=== PATIENT | male | born 1960 | race Caucasian/White ===

== ENCOUNTER → 2017-08-03 | Outpatient (REF) | LOC: M LAB 10:27 | PROVIDERS: ATTEND Nurse Practitioner Adult Health | DX: Z02.1 Encounter for pre-employment examination (principal) ==

== ENCOUNTER 2018-02-14 08:09 | Outpatient (REF) | payer OTHER ==
[2018-02-18 16:27] LABS: ALBUMIN 3.7 GM/DL (3.2-5.2); ALBUMIN/GLOBULIN RATIO 1.12 (1.00-1.93); ALKALINE PHOSPHATASE 68 U/L (45-117); ALT/SGPT 26 U/L (12-78); ANION GAP 7 MEQ/L (8-16); AST/SGOT 16 U/L (7-37); BILIRUBIN,TOTAL 0.3 MG/DL (0.2-1.0); BLOOD UREA NITROGEN 21 MG/DL (7-18); CALCIUM LEVEL 8.9 MG/DL (8.5-10.1); CARBON DIOXIDE LEVEL 28 MEQ/L (21-32); CHLORIDE LEVEL 108 MEQ/L (98-107); CREATININE FOR GFR 1.06 MG/DL (0.70-1.30); GLOMERULAR FILTRATION RATE > 60.0 (>56); GLUCOSE, FASTING 79 MG/DL (70-100); POTASSIUM SERUM 4.2 MEQ/L (3.5-5.1); SODIUM LEVEL 143 MEQ/L (136-145)
== END 2018-02-18 ==
LOC: M SFHCPLAZ 08:09
DX: I10 Essential (primary) hypertension (principal)

== ENCOUNTER → 2018-04-04 | Outpatient (REF) | payer SELFPAY, OTHER ==
[2018-04-04 11:06] LABS: BASO # 0.1 10^3/uL (0.0-0.2); EOS # 0.5 10^3/uL (0.0-0.50); EOS % 4.7 % (0.0-3.0); HEMOGLOBIN 16.8 g/dl (13.5-17.5); IMMATURE GRANULOCYTE % 0.2 % (0-3.0); LYMPH # 3.1 10^3/uL (1.5-4.5); LYMPH % 30.7 % (24.0-44.0); MEAN CORPUSCULAR HEMOGLOBIN 33.2 pg (27.0-33.0); MEAN CORPUSCULAR HGB CONC 34.3 g/dl (32.0-36.5); MEAN CORPUSCULAR VOLUME 96.8 fl (80.0-96.0); MONO # 0.8 10^3/uL (0.0-0.8); MONO % 8.2 % (0.0-5.0); NEUTROPHILS # 5.6 10^3/uL (1.8-7.7); NEUTROPHILS % 55.2 % (36.0-66.0); PLATELET COUNT, AUTOMATED 326 10^3/uL (150-450); RED BLOOD COUNT 5.06 10^6/uL (4.30-6.10); RED CELL DISTRIBUTION WIDTH 13.9 % (11.5-14.5); WHITE BLOOD COUNT 10.2 10^3/uL (4.0-10.0)
[2018-04-04 12:16] LABS: MALB URINE SIEMENS 6.1 MG/L; MAU/CREAT RATIO 5.9 MCG/MG (0.0-30.0)
[2018-04-04 13:01] LABS: ALBUMIN 3.9 GM/DL (3.2-5.2); ALBUMIN/GLOBULIN RATIO 1.18 (1.00-1.93); ALKALINE PHOSPHATASE 61 U/L (45-117); ALT/SGPT 26 U/L (12-78); ANION GAP 7 MEQ/L (8-16); AST/SGOT 14 U/L (7-37); BILIRUBIN,TOTAL 0.6 MG/DL (0.2-1.0); BLOOD UREA NITROGEN 12 MG/DL (7-18); CALCIUM LEVEL 8.6 MG/DL (8.5-10.1); CARBON DIOXIDE LEVEL 27 MEQ/L (21-32); CHLORIDE LEVEL 107 MEQ/L (98-107); CHOLESTEROL LEVEL 205 MG/DL (<200); CHOLESTEROL RISK RATIO 4.659 (<5); CREATININE FOR GFR 0.94 MG/DL (0.70-1.30); FREE T4 1.02 NG/DL (0.76-1.46); GLOMERULAR FILTRATION RATE > 60.0 (>56); GLUCOSE, FASTING 100 MG/DL (70-100); HDL CHOLESTEROL 44 MG/DL (>40); LDL CHOLESTEROL 143.6 MG/DL (<100); NON-HDL-C 161 MG/DL; POTASSIUM SERUM 4.5 MEQ/L (3.5-5.1); SODIUM LEVEL 141 MEQ/L (136-145); TOTAL PROTEIN 7.2 GM/DL (6.4-8.2); TRIGLYCERIDES LEVEL 87 MG/DL (<150)
== END ==
LOC: M SFHCPLAZ 08:00
DX: I10 Essential (primary) hypertension (principal); E78.5 Hyperlipidemia, unspecified

== ENCOUNTER 2019-07-30 10:05 | Emergency (ER) | payer BC, SELFPAY ==
[~2019-07-30] VITALS: Ht 170.2 cm; Wt 103.2 kg
[2019-07-30] MEDS ORDERED: LOSA50TA88 PO (10:09)
[2019-07-30] MEDS ORDERED: ISOVUE-370 76% 100ML VIAL (Q9967) As Ordered ONE (10:41)
[2019-07-30 10:55] LABS: BASO # 0.1 10^3/uL (0.0-0.2); EOS # 0.4 10^3/uL (0.0-0.5); EOS % 4.1 % (0.0-3.0); HEMATOCRIT 50.6 % (42.0-52.0); HEMOGLOBIN 16.9 g/dl (13.5-17.5); LYMPH # 3.3 10^3/uL (1.5-5.0); LYMPH % 30.8 % (24.0-44.0); MEAN CORPUSCULAR HEMOGLOBIN 33.2 pg (27.0-33.0); MEAN CORPUSCULAR HGB CONC 33.4 g/dl (32.0-36.5); MEAN CORPUSCULAR VOLUME 99.4 fl (80.0-96.0); MONO % 9.6 % (0.0-5.0); NEUTROPHILS # 5.7 10^3/uL (1.5-8.5); NEUTROPHILS % 54.2 % (36.0-66.0); PLATELET COUNT, AUTOMATED 293 10^3/uL (150-450); RED BLOOD COUNT 5.09 10^6/uL (4.30-6.10); WHITE BLOOD COUNT 10.6 10^3/uL (4.0-10.0)
[2019-07-30 11:06] LABS: INR 1.05; PROTHROMBIN TIME 13.4 SECONDS (11.8-14.0)
[2019-07-30 11:07] LABS: PARTIAL THROMBOPLASTIN TIME 29.9 SECONDS (25.0-38.4)
[2019-07-30 11:28] LABS: ALBUMIN 4.1 GM/DL (3.2-5.2); ALT/SGPT 24 U/L (12-78); BILIRUBIN,DIRECT 0.2 MG/DL (0.0-0.2); BILIRUBIN,TOTAL 0.8 MG/DL (0.2-1.0); BLOOD UREA NITROGEN 13 MG/DL (7-18); CALCIUM LEVEL 9.4 MG/DL (8.5-10.1); CARBON DIOXIDE LEVEL 28 MEQ/L (21-32); CHLORIDE LEVEL 104 MEQ/L (98-107); CREATININE FOR GFR 1.06 MG/DL (0.70-1.30); GLOMERULAR FILTRATION RATE > 60.0 (>56); GLUCOSE, FASTING 104 MG/DL (70-100); LIPASE 106 U/L (73-393); POTASSIUM SERUM 4.3 MEQ/L (3.5-5.1); SODIUM LEVEL 140 MEQ/L (136-145); TOTAL PROTEIN 7.5 GM/DL (6.4-8.2)
--- NOTE | 2019-07-30 11:28 | REP ---
Clinical: Chest pain. Evaluate thoracic aortic aneurysm. Technique: Axial contrast enhanced images from the thoracic inlet to the upper abdomen using angiographic technique for maximal enhancement of the thoracic aorta with coronal and sagittal re-formations and volume rendered 3-D angiogram. Findings: Thoracic aorta and major branch vessels of the aortic arch are normal and there is no evidence for aneurysm or dissection. No significant atherosclerotic changes are appreciated. Pulmonary vasculature is grossly unremarkable. The heart is normal in size without pericardial effusion. Subtle atherosclerotic changes to the coronary arteries noted. Lung serra are relatively clear and without acute process. Mild emphysematous changes are suggested along with 7 mm calcified granuloma in the right upper lobe. No acute consolidation. No effusion. No pneumothorax. Tracheobronchial tree is patent. No adenopathy. Surrounding musculoskeletal structures are intact. Impression: 1. Normal thoracic aorta and branch vessels without evidence for aortic aneurysm or dissection. 2. Atherosclerotic changes to the coronary arteries without cardiomegaly or pericardial effusion. 3. Mild emphysematous changes suggested. No acute pleuroparenchymal process. Electronically Signed by Zak Farr MD 07/30/2019 11:19 A
[2019-07-30] MEDS ORDERED: NS 1,000 ML IV ONE (11:45)
[2019-07-30 11:52] LABS: C REACTIVE PROTEIN QUANTITATIV 0.42 MG/DL (0.00-0.30); CK-MB VALUE MASS 1.8 NG/ML (<3.6); CPK CREATINE PHOSPHOKINASE 104 U/L (39-308); MB/CK RELATIVE INDEX 1.73 (< OR =4); NT-PRO BNP 58 PG/ML (<125); TROPONIN I < 0.02 NG/ML (< 0.10)
--- NOTE | 2019-07-30 12:05 | REP ---
CT ANGIOGRAM ABDOMEN AND PELVIS: TECHNIQUE: Axial contrast enhanced images from the lung bases to the pubic symphysis using 100 mL Isovue 370 intravenous contrast material with multiplanar reformations. 3-D MIP reconstruction images are performed. Visualized lung bases demonstrate no infiltrate. The liver, spleen, adrenals, pancreas, and kidneys are essentially unremarkable except for a tiny 3 mm calculus in the left renal collecting system inferiorly. There is no hydronephrosis bilaterally. There is mild focal dilatation of the infrarenal abdominal aorta with maximum AP diameter 3.2 cm. Mild scattered atherosclerotic calcifications are noted of the abdominal aorta. The distal end of the abdominal aorta is ectatic at 2.5 cm just above the aortic bifurcation. Right common iliac artery is ectatic at 1.6 to 1.9 cm in AP dimension with mild atherosclerotic plaquing. 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 There is no leakage of dissection of the aneurysm. No adenopathy is seen. There is no free air or free fluid. The appendix is normal. No bowel wall thickening is seen. There is sigmoid diverticulosis without any diverticulitis. Urinary bladder appears unremarkable. There appears to be a small right inguinal hernia containing fat. IMPRESSION: Slight aneurysmal dilatation of the distal abdominal aorta 3.2 cm maximally. 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 This was performed at an outside institution. No aneurysmal rupture or dissection. Sigmoid diverticulosis without acute diverticulitis. Right inguinal hernia contains fat. 3 mm intrarenal calculus left kidney. Electronically Signed by Nura Nicole MD 07/30/2019 12:25 P
[2019-07-30 12:20] LABS: ERYTHROCYTE SEDIMENTATION RATE 2 mm/hr (0-20)
[2019-07-30 14:41] VITALS: BP 145/88
--- NOTE | 2019-07-30 14:57 | REP ---
Clinical: Left scrotal pain. Technique: Real time he scale and color Doppler evaluation using linear high frequency transducer. Findings: The bilateral testicles are normal in contour, size, echogenicity and vascularity without torsion, infectious/inflammatory process, or testicular mass. Bilateral epididymal cysts measure up to 9 mm on the right and 7 mm on the left along with small bilateral hydroceles and multiple bilateral thrombosed varicoceles. Right testicle measures 4.0 x 1.9 x 2.9 cm. Left testicle measures 4.3 x 2.0 x 2.5 cm. Impression: 1. No obvious testicular abnormality. 2. Bilateral epididymal cysts, small hydroceles, and partially thrombosed varicoceles. Electronically Signed by Zak Farr MD 07/30/2019 02:48 P
--- NOTE | 2019-07-30 14:59 | REP ---
Clinical: Left groin pain. Technique: Real time he scale and color evaluation using linear high frequency transducer. Findings: Small bilateral fat containing inguinal hernias are identified (right greater left) which appear to be partially reducible. The right inguinal defect measures 24 mm diameter while the left inguinal defect measures 10 mm diameter. No associated bowel hernia. Impression: Small bilateral (right greater than left) reducible fat containing inguinal hernias. Electronically Signed by Zak Farr MD 07/30/2019 02:51 P
[2019-07-30 15:56] LABS: CHLAMYDIA DNA AMPLIFICATION NEGATIVE (NEGATIVE); GC DNA AMPLIFICATION NEGATIVE (NEGATIVE)
--- NOTE | 2019-07-31 11:34 | ED PDOC ---
Post-Departure Follow-Up [facility] faxed scrotal us for fu. cta abd/p faxed to dr brito for fu Dwayne Parada lg, MD Jul 31, 2019 11:34
== END 2019-07-30 15:45 | disposition home or self-care (01) ==
LOC: M ED 10:05
DX: R10.30 Lower abdominal pain, unspecified (principal); N20.0 Calculus of kidney; N50.3 Cyst of epididymis; J43.9 Emphysema, unspecified; K57.31 Diverticulosis of large intestine without perforation or abscess with bleeding; I25.10 Atherosclerotic heart disease of native coronary artery without angina pectoris; I86.1 Scrotal varices; N43.3 Hydrocele, unspecified; K40.20 Bilateral inguinal hernia, without obstruction or gangrene, not specified as recurrent; I71.4 Abdominal aortic aneurysm, without rupture; I72.3 Aneurysm of iliac artery; I10 Essential (primary) hypertension; F17.210 Nicotine dependence, cigarettes, uncomplicated; Z79.811 Long term (current) use of aromatase inhibitors
CPT/HCPCS: 71275; 74174; 76857; 76870; 80047; 80048; 80076; 81001; 82550; 82553; 83605; 83690; 83880; 84484; 85025; 85610; 85652; 85730; 86140; 86850; 86900; 86901; 87491; 87591; 93976; 96360; 96361; 99284; Q9967

== ENCOUNTER → 2019-09-09 | Outpatient (REF) | payer BC ==
[~2019-09-09] MED LIST: LOSA50TA88 PO
[2019-09-09 11:42] LABS: BASO # 0.1 10^3/uL (0.0-0.2); EOS # 0.4 10^3/uL (0.0-0.5); EOS % 3.7 % (0.0-3.0); HEMATOCRIT 51.2 % (42.0-52.0); HEMOGLOBIN 16.8 g/dl (13.5-17.5); LYMPH # 2.9 10^3/uL (1.5-5.0); LYMPH % 28.1 % (24.0-44.0); MEAN CORPUSCULAR HEMOGLOBIN 33.1 pg (27.0-33.0); MEAN CORPUSCULAR HGB CONC 32.8 g/dl (32.0-36.5); MONO # 1.1 10^3/uL (0.0-0.8); MONO % 10.9 % (0.0-5.0); NEUTROPHILS # 5.7 10^3/uL (1.5-8.5); NEUTROPHILS % 55.9 % (36.0-66.0); PLATELET COUNT, AUTOMATED 300 10^3/uL (150-450); RED BLOOD COUNT 5.07 10^6/uL (4.30-6.10); WHITE BLOOD COUNT 10.3 10^3/uL (4.0-10.0)
[2019-09-09 12:01] LABS: ALBUMIN 4.2 GM/DL (3.2-5.2); ALT/SGPT 21 U/L (12-78); BILIRUBIN,TOTAL 0.4 MG/DL (0.2-1.0); BLOOD UREA NITROGEN 14 MG/DL (7-18); CARBON DIOXIDE LEVEL 27 MEQ/L (21-32); CHLORIDE LEVEL 104 MEQ/L (98-107); CHOLESTEROL LEVEL 238 MG/DL (<200); CHOLESTEROL RISK RATIO 4.576 (<5); CREATININE FOR GFR 0.95 MG/DL (0.70-1.30); GLOMERULAR FILTRATION RATE > 60.0 (>56); GLUCOSE, FASTING 107 MG/DL (70-100); HDL CHOLESTEROL 52 MG/DL (>40); LDL CHOLESTEROL 168 MG/DL (<100); NON-HDL-C 186 MG/DL; POTASSIUM SERUM 4.3 MEQ/L (3.5-5.1); SODIUM LEVEL 138 MEQ/L (136-145); TOTAL PROTEIN 7.3 GM/DL (6.4-8.2); TRIGLYCERIDES LEVEL 90 MG/DL (<150)
[2019-09-09 12:07] LABS: VITAMIN B12 LEVEL 1086 PG/ML (247-911)
== END ==
LOC: M SFHCPLAZ 09:42
PROVIDERS: ATTEND Physician Assistant Medical
DX: I10 Essential (primary) hypertension (principal); E78.5 Hyperlipidemia, unspecified; N20.0 Calculus of kidney; F17.210 Nicotine dependence, cigarettes, uncomplicated

== ENCOUNTER → 2019-10-10 | Outpatient (CLI) | payer BC ==
[2019-10-10 14:36] LABS: ALBUMIN 3.9 GM/DL (3.2-5.2); ALT/SGPT 25 U/L (12-78); BILIRUBIN,TOTAL 0.5 MG/DL (0.2-1.0); BLOOD UREA NITROGEN 15 MG/DL (7-18); CALCIUM LEVEL 9.2 MG/DL (8.5-10.1); CARBON DIOXIDE LEVEL 32 MEQ/L (21-32); CHLORIDE LEVEL 108 MEQ/L (98-107); GLOMERULAR FILTRATION RATE > 60.0 (>56); GLUCOSE, FASTING 84 MG/DL (70-100); MAGNESIUM LEVEL 2.2 MG/DL (1.8-2.4); NT-PRO BNP 377 PG/ML (<125); POTASSIUM SERUM 4.2 MEQ/L (3.5-5.1); SODIUM LEVEL 144 MEQ/L (136-145); TOTAL PROTEIN 6.9 GM/DL (6.4-8.2)
== END ==
LOC: M PLALAB 10:59
PROVIDERS: ATTEND Physician Assistant Medical
DX: I10 Essential (primary) hypertension (principal)

== ENCOUNTER 2019-10-15 07:07 | Emergency (ER) | payer BC ==
[~2019-10-15] VITALS: Ht 172.7 cm; Wt 104.5 kg
[2019-10-15] MEDS ORDERED: ROSU10TA6 PO (07:21)
[2019-10-15] MEDS ORDERED: SPIR1CAP INH (07:21)
[2019-10-15] MEDS ORDERED: AMLO5TAB6 PO (07:21)
[2019-10-15] MEDS ORDERED: MUCI600T31 PO (07:21)
[2019-10-15] MEDS ORDERED: ALBU8.5H INH (07:21)
[2019-10-15] MEDS ORDERED: methylPREDNISolone INJ 125 MG/2 ML VIAL (J2930) IV ONE (07:30)
[2019-10-15 07:32] LABS: BASO # 0.1 10^3/uL (0.0-0.2); BASO % 0.6 % (0.0-1.0); EOS # 0.2 10^3/uL (0.0-0.5); EOS % 1.1 % (0.0-3.0); HEMATOCRIT 47.2 % (42.0-52.0); HEMOGLOBIN 16.1 g/dl (13.5-17.5); LYMPH % 18.5 % (24.0-44.0); MEAN CORPUSCULAR HGB CONC 34.1 g/dl (32.0-36.5); MEAN CORPUSCULAR VOLUME 99.6 fl (80.0-96.0); MONO # 1.5 10^3/uL (0.0-0.8); MONO % 9.5 % (0.0-5.0); NEUTROPHILS # 11.3 10^3/uL (1.5-8.5); NEUTROPHILS % 69.8 % (36.0-66.0); PLATELET COUNT, AUTOMATED 267 10^3/uL (150-450); RED BLOOD COUNT 4.74 10^6/uL (4.30-6.10); WHITE BLOOD COUNT 16.2 10^3/uL (4.0-10.0)
[2019-10-15 07:45] LABS: D-DIMER QUANT 1658.92 ng/ml (<500)
[2019-10-15] MEDS: IPRATROPIUM 0.5MG/ALBUTEROL 2.5MG INH SOL UD 3ML (DUONEB)(J7620) NEB SCH ×3 (07:48→09:19)
[2019-10-15 08:06] LABS: ALBUMIN 3.9 GM/DL (3.2-5.2); BILIRUBIN,DIRECT 0.3 MG/DL (0.0-0.2); BILIRUBIN,TOTAL 0.9 MG/DL (0.2-1.0)
[2019-10-15 08:08] LABS: BLOOD UREA NITROGEN 18 MG/DL (7-18); CALCIUM LEVEL 9.2 MG/DL (8.5-10.1); CARBON DIOXIDE LEVEL 29 MEQ/L (21-32); CHLORIDE LEVEL 108 MEQ/L (98-107); CK-MB VALUE MASS 2.1 NG/ML (<3.6); CPK CREATINE PHOSPHOKINASE 88 U/L (39-308); CREATININE FOR GFR 1.05 MG/DL (0.70-1.30); GLOMERULAR FILTRATION RATE > 60.0 (>56); GLUCOSE, FASTING 122 MG/DL (70-100); MB/CK RELATIVE INDEX 2.39 (< OR =4); POTASSIUM SERUM 4.1 MEQ/L (3.5-5.1); SODIUM LEVEL 137 MEQ/L (136-145); TROPONIN I 0.04 NG/ML (< 0.10)
[2019-10-15 08:21] LABS: INFLUENZA A AMPLIFICATION NEGATIVE (NEGATIVE); INFLUENZA B AMPLIFICATION NEGATIVE (NEGATIVE)
[2019-10-15] MEDS ORDERED: ISOVUE-370 76% 100ML VIAL (Q9967) As Ordered ONE (08:32)
--- NOTE | 2019-10-15 09:48 | REP ---
Portable chest x-ray: Single view. History: Chest pain. No comparison study. Findings: Monitoring electrodes are seen. The lungs are well inflated and free of infiltrate. Pleural angles appear sharp. Heart is not enlarged. Pulmonary vasculature is not increased. Impression: No acute disease. Electronically Signed by Maicol Lester MD 10/15/2019 07:45 A
--- NOTE | 2019-10-15 09:53 | REP ---
Clinical: Shortness of breath and elevated D-dimer levels. Technique: Axial contrast enhanced images from the thoracic inlet to the upper abdomen using 100 ml Isovue 370 intravenous contrast material with multiplanar re-formations. Findings: Satisfactory enhancement of the pulmonary vasculature is achieved and no filling defects are identified to suggest pulmonary embolus. Further evaluation of the mediastinum demonstrates normal thoracic aorta, heart and pericardium. The bilateral lung serra are well aerated and clear without consolidation pleural effusion or pneumothorax. Minimal posterior dependent changes. Tracheobronchial tree is patent. No nodule or mass lesion is identified. No adenopathy noted. Surrounding musculoskeletal structures intact Impression: No evidence for pulmonary embolus. No acute mediastinal or pleural parenchymal process. Electronically Signed by Zak Farr MD 10/15/2019 08:50 A
[2019-10-15] MEDS ORDERED: ALBUTEROL SULFATE 2.5 MG/0.5 ML INH NEB SOLN INH ONE (10:00)
[2019-10-15] MEDS ORDERED: AMIODARONE 150MG/3ML INJ (J0282) IVP STA (10:41)
[2019-10-15] MEDS ORDERED: NS 1,000 ML IV SCH (11:00)
[2019-10-15 11:29] LABS: CK-MB VALUE MASS 1.2 NG/ML (<3.6); MB/CK RELATIVE INDEX 0.36 (< OR =4); TROPONIN I 0.04 NG/ML (< 0.10)
[2019-10-15 11:37] LABS: INR 1.02; PARTIAL THROMBOPLASTIN TIME 31.3 SECONDS (25.0-38.4); PROTHROMBIN TIME 13.1 SECONDS (11.8-14.0)
[2019-10-15] MEDS ORDERED: AMIODARONE HCL 360 MG in IV 1 EA IV SCH (11:45)
[2019-10-15 12:45] VITALS: BP 115/79
--- NOTE | 2019-10-15 20:34 | ECGEPIP ---
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
--- NOTE | 2019-10-15 20:36 | ECGEPIP ---
[facility] - ED Test Date: 2019-10-15 Pat Name: WHIT OCHOA Department: Room: - Gender: Male [employer]ants [employer] Assistant: cristo : 1960 Requested By: Sudhir Leahy Order Number: [id number] Reading MD: Sudhir Ibrahim Measurements Intervals [place] Rate: 98 P: 66 CO: 159 QRS: 52 QRSD: 106 T: 124 QT: 375 QTc: 480 Interpretive Statements SINUS RHYTHM WITH FREQUENT VENTRICULAR PREMATURE COMPLEXES NONSPECIFIC ST & T-WAVE ABNORMALITY SIMILAR TO PRIOR ON SAME DATE Electronically Signed on 10-15-2019 20:36:26 EST by Sudhir Ibrahim
== END 2019-10-15 12:46 | disposition short-term general hospital (02) ==
LOC: M ED 07:07 → CANBEDREQ 11:31 → M ED 12:46
DX: I47.2 Ventricular tachycardia (principal); J44.1 Chronic obstructive pulmonary disease with (acute) exacerbation; I10 Essential (primary) hypertension; E78.5 Hyperlipidemia, unspecified; I72.3 Aneurysm of iliac artery; F17.210 Nicotine dependence, cigarettes, uncomplicated; Z79.51 Long term (current) use of inhaled steroids; Z79.899 Other long term (current) drug therapy
CPT/HCPCS: 71045; 71275; 80048; 80076; 82550; 82553; 83690; 83735; 84484; 85025; 85379; 85610; 85730; 87631; 93005; 93041; 94640; 94760; 96374; 96375; 99285; J0282; J2930; Q9967

== ENCOUNTER → 2020-08-18 | Outpatient (CLI) | payer BC ==
[~2020-08-18] MED LIST changes: +ALBU8.5H INH; +AMLO1TAB24 PO; +ISOVUE-370 76% 100ML VIAL As Ordered ONE; +MUCI600T31 PO; +ROSU10TA6 PO; +SPIR1CAP INH
--- NOTE | 2020-08-19 10:36 | REP ---
INDICATION: AAA COMPARISON: 07/30/2019 TECHNIQUE: Axial contrast-enhanced images from the lung bases to the pubic symphysis using CT angiographic technique including multiplanar reformations. 100 cc Isovue 370 intravenous contrast material administered without complication.. This CT examination was performed using the following dose reduction techniques: Automated exposure control, adjustment of mA and/or kv according to the patient's size, and use of iterative reconstruction technique. FINDINGS: The abdominal aorta again demonstrates mild early moderate atherosclerotic changes and a stable focal area of mild aneurysmal dilatation measuring 3.3 cm maximal diameter and roughly 2.3 cm in craniocaudal length followed by ectatic appearance to the more distal abdominal aorta measuring up to 2.7 cm maximal diameter with extension into the left common iliac artery demonstrating noncalcified mural thrombus and aneurysmal dilatation to approximately 3.2 cm maximal diameter and roughly 4.5 cm in length. Atherosclerotic changes to the right common iliac artery also noted which measures 1.9 cm maximal diameter. Remainder of the major aortic branch vessels including celiac axis, superior mesenteric artery, bilateral renal arteries, and inferior mesenteric artery appear patent and relatively normal. Mild hepatosteatosis suggested without focal hepatic lesion. Spleen, pancreas, gallbladder, bilateral adrenal glands and kidneys are normal. The enteric system is without obstruction or acute inflammatory process. Normal terminal ileum and appendix identified in the right lower quadrant. Scattered colonic and sigmoid diverticula noted without acute diverticulitis. Pelvis demonstrates normal bladder and age-appropriate prostate/seminal vesicles along with stable fat containing right inguinal hernia. No ascites. No free air. No intraperitoneal or retroperitoneal adenopathy. Musculoskeletal structures demonstrate stable degenerative changes. IMPRESSION: 1. Changes as described above involving the abdominal aorta and left iliac artery similar to prior examination. 2. Nonacute abdominal findings including diverticulosis and fat containing right inguinal hernia. <Electronically signed by Zak Farr > 08/19/20 [id number]
== END ==
LOC: M RAD 16:53
PROVIDERS: ATTEND Surgery Vascular Surgery
DX: I71.4 Abdominal aortic aneurysm, without rupture (principal)

== ENCOUNTER → 2021-01-03 | Outpatient (CLI) | payer BC ==
[~2021-01-03] MED LIST changes: -ISOVUE-370 76% 100ML VIAL As Ordered ONE
[2021-01-03 13:17] LABS: HEMOGLOBIN 15.9 g/dl (13.5-17.5); MEAN CORPUSCULAR HGB CONC 33.1 g/dl (32.0-36.5); MEAN CORPUSCULAR VOLUME 99.6 fl (80.0-96.0); PLATELET COUNT, AUTOMATED 332 10^3/uL (150-450); RED BLOOD COUNT 4.82 10^6/uL (4.30-6.10); WHITE BLOOD COUNT 11.9 10^3/uL (4.0-10.0)
[2021-01-03 13:55] LABS: ALBUMIN 3.8 GM/DL (3.2-5.2); ALT/SGPT 20 U/L (12-78); BILIRUBIN,TOTAL 0.6 MG/DL (0.2-1.0); BLOOD UREA NITROGEN 14 MG/DL (7-18); CARBON DIOXIDE LEVEL 29 MEQ/L (21-32); CHLORIDE LEVEL 107 MEQ/L (98-107); CHOLESTEROL LEVEL 155 MG/DL (<200); GLOMERULAR FILTRATION RATE > 60.0 (>56); GLUCOSE, FASTING 105 MG/DL (70-100); HDL CHOLESTEROL 62 MG/DL (>40); LDL CHOLESTEROL 70 MG/DL (<100); NON-HDL-C 93 MG/DL; POTASSIUM SERUM 4.2 MEQ/L (3.5-5.1); SODIUM LEVEL 140 MEQ/L (136-145); TOTAL PROTEIN 7.3 GM/DL (6.4-8.2); TRIGLYCERIDES LEVEL 116 MG/DL (<150)
[2021-01-03 13:57] LABS: TOTAL 25(OH) VITAMIN D 11.4 NG/ML (30.0-100.0)
== END ==
LOC: M LAB 12:19
PROVIDERS: ATTEND Family Medicine
DX: R06.00 Dyspnea, unspecified (principal)

== ENCOUNTER → 2021-08-01 | Outpatient (REF) | LOC: M EMP 12:18 | PROVIDERS: ATTEND Family Medicine | DX: Z11.52 Encounter for screening for COVID-19 (principal) ==

== ENCOUNTER → 2021-08-04 | Outpatient (REF) ==
[2021-08-04 10:50] LABS: RSV AMPLIFICATION NEGATIVE (NEGATIVE)
== END ==
LOC: M EMP 09:53
PROVIDERS: ATTEND Family Medicine
DX: Z20.822 Contact with and (suspected) exposure to COVID-19 (principal)

== ENCOUNTER → 2022-03-09 | Outpatient (CLI) | payer BC ==
[~2022-03-09] MED LIST changes: +LOSA50TA28 PO; -LOSA50TA88 PO
== END ==
LOC: M WUC 11:25
PROVIDERS: ATTEND Physician Assistant
DX: M79.674 Pain in right toe(s) (principal)

== ENCOUNTER → 2022-03-10 | Outpatient (CLI) | payer BC ==
[2022-03-10 10:57] LABS: BLOOD UREA NITROGEN 14 MG/DL (7-18); CALCIUM LEVEL 9.2 MG/DL (8.8-10.2); CARBON DIOXIDE LEVEL 25 MEQ/L (21-32); CHLORIDE LEVEL 105 MEQ/L (98-107); CREATININE FOR GFR 0.99 MG/DL (0.70-1.30); GLOMERULAR FILTRATION RATE > 60.0 (>49); GLUCOSE, FASTING 102 MG/DL (70-100); POTASSIUM SERUM 4.9 MEQ/L (3.5-5.1); SODIUM LEVEL 138 MEQ/L (136-145)
== END ==
LOC: M LAB 09:25
PROVIDERS: ATTEND Nurse Practitioner Family
DX: I25.10 Atherosclerotic heart disease of native coronary artery without angina pectoris (principal)

== ENCOUNTER → 2022-03-14 | Outpatient (CLI) | payer BC | LOC: M RAD 08:43 | PROVIDERS: ATTEND Nurse Practitioner Family | DX: F17.210 Nicotine dependence, cigarettes, uncomplicated (principal) ==

== ENCOUNTER → 2022-06-22 | Outpatient (CLI) | payer BC ==
[~2022-06-22] MED LIST changes: +ANOR1AER INH; +ATOR80TA59 PO; +CARV6.25 PO; +ECOT81TA5 PO; +FURO40TA2 PO; +ISOVUE-370 76% 100ML VIAL As Ordered ONE; +JARD1TAB PO; +POTA1TAB23 PO; +SOTA120T PO
== END ==
LOC: M RAD 08:28
PROVIDERS: ATTEND Nurse Practitioner Family
DX: R51.9 Headache, unspecified (principal)
CPT/HCPCS: 70496; Q9967

== ENCOUNTER → 2022-06-25 | Outpatient (CLI) | payer BC ==
[~2022-06-25] MED LIST changes: -ISOVUE-370 76% 100ML VIAL As Ordered ONE
== END ==
LOC: M LABSMTC 10:33
PROVIDERS: ATTEND Anesthesiology
DX: Z20.828 Contact with and (suspected) exposure to other viral communicable diseases (principal); Z11.59 Encounter for screening for other viral diseases

== ENCOUNTER 2022-06-28 10:53 | Day surgery (SDC) | payer BC ==
[~2022-06-28] VITALS: Ht 167.6 cm; Wt 107.0 kg
[~2022-06-28 10:53] MED LIST changes: +NS 1,000 ML IV ONE
[2022-06-28] MEDS ORDERED: LIDOCAINE 2% 100MG/5ML SDV (FOR ANES.) As Ordered ONE (12:18)
[2022-06-28] MEDS ORDERED: propofoL 200 MG/20 ML VIAL As Ordered ONE (12:18)
[2022-06-28 14:05] VITALS: BP 178/86
== END 2022-06-28 14:19 | disposition home or self-care (01) ==
LOC: M OPP 10:53
PROVIDERS: ATTEND Surgery
DX: Z12.11 Encounter for screening for malignant neoplasm of colon (principal); Z86.010 Personal history of colon polyps; D12.6 Benign neoplasm of colon, unspecified; Z79.02 Long term (current) use of antithrombotics/antiplatelets; Z79.82 Long term (current) use of aspirin; Z79.84 Long term (current) use of oral hypoglycemic drugs; Z79.899 Other long term (current) drug therapy; F17.200 Nicotine dependence, unspecified, uncomplicated; F32.9 Major depressive disorder, single episode, unspecified; F41.9 Anxiety disorder, unspecified; I71.30 Abdominal aortic aneurysm, ruptured, unspecified; I72.3 Aneurysm of iliac artery; I10 Essential (primary) hypertension; E78.00 Pure hypercholesterolemia, unspecified; J44.9 Chronic obstructive pulmonary disease, unspecified; Z95.0 Presence of cardiac pacemaker; Z95.5 Presence of coronary angioplasty implant and graft

== ENCOUNTER → 2023-01-10 | Outpatient (CLI) | payer BC ==
[~2023-01-10] MED LIST changes: -NS 1,000 ML IV ONE
[2023-01-10 08:36] LABS: BASO # 0.1 10^3/uL (0.0-0.2); EOS # 0.3 10^3/uL (0.0-0.5); EOS % 3.5 % (0.0-3.0); HEMATOCRIT 55.6 % (42.0-52.0); LYMPH # 2.7 10^3/uL (1.5-5.0); MEAN CORPUSCULAR HEMOGLOBIN 33.4 pg (27.0-33.0); MEAN CORPUSCULAR HGB CONC 33.8 g/dl (32.0-36.5); MEAN CORPUSCULAR VOLUME 98.8 fl (80.0-96.0); MONO # 0.9 10^3/uL (0.0-0.8); MONO % 9.6 % (2.0-8.0); NEUTROPHILS # 5.6 10^3/uL (1.5-8.5); NEUTROPHILS % 57.4 % (36.0-66.0); PLATELET COUNT, AUTOMATED 232 10^3/uL (150-450); RED BLOOD COUNT 5.63 10^6/uL (4.30-6.10); WHITE BLOOD COUNT 9.7 10^3/uL (4.0-10.0)
[2023-01-10 08:48] LABS: ALBUMIN 3.9 G/DL (3.2-5.2); ALKALINE PHOSPHATASE 71 U/L (46-116); ALT/SGPT 24 U/L (7.0-40); AST/SGOT 21 U/L (<34); BILIRUBIN,TOTAL 0.9 MG/DL (0.3-1.2); BLOOD UREA NITROGEN 15 MG/DL (9-23); CALCIUM LEVEL 9.1 MG/DL (8.3-10.6); CARBON DIOXIDE LEVEL 27 MMOL/L (20-31); CHLORIDE LEVEL 108 MMOL/L (98-107); CHOLESTEROL LEVEL 144 MG/DL (<200); CHOLESTEROL RISK RATIO 3.02 (<5); CREATININE FOR GFR 0.86 MG/DL (0.70-1.30); GLOMERULAR FILTRATION RATE > 60.0 (>49); GLUCOSE, FASTING 116 MG/DL (74-106); HDL CHOLESTEROL 47.6 MG/DL (>40); LDL CHOLESTEROL 80.6 MG/DL (<100); NON-HDL-C 96.4 MG/DL; POTASSIUM SERUM 4.6 MMOL/L (3.5-5.1); SODIUM LEVEL 140 MMOL/L (136-145); TOTAL PROTEIN 6.6 G/DL (5.7-8.2); TRIGLYCERIDES LEVEL 79 MG/DL (<150)
[2023-01-10 08:50] LABS: HEMOGLOBIN 18.8 g/dl (13.5-17.5)
[2023-01-10 09:27] LABS: HEMOGLOBIN A1c 5.7 % (4.0-6.0)
== END ==
LOC: M RAD 07:17
PROVIDERS: ATTEND Registered Nurse
DX: Z87.891 Personal history of nicotine dependence (principal)

== ENCOUNTER → 2023-01-23 | Outpatient (REF) | LOC: M EMP 08:16 | PROVIDERS: ATTEND Family Medicine | DX: Z20.822 Contact with and (suspected) exposure to COVID-19 (principal) ==

== ENCOUNTER → 2023-01-24 | Outpatient (REF) | LOC: M EMP 12:26 | PROVIDERS: ATTEND Family Medicine | DX: Z20.822 Contact with and (suspected) exposure to COVID-19 (principal) ==

== ENCOUNTER → 2023-02-12 | Outpatient (CLI) | payer BC ==
[~2023-02-12] MED LIST changes: +ISOVUE-370 76% 100ML VIAL As Ordered ONE
== END ==
LOC: M RAD 13:27
PROVIDERS: ATTEND Registered Nurse
DX: I71.40 Abdominal aortic aneurysm, without rupture, unspecified (principal); I70.0 Atherosclerosis of aorta; I72.3 Aneurysm of iliac artery
CPT/HCPCS: 74177; Q9967

== ENCOUNTER → 2023-03-13 | Outpatient (CLI) | payer BC ==
[~2023-03-13] MED LIST changes: -ISOVUE-370 76% 100ML VIAL As Ordered ONE
== END ==
LOC: M CARPUL 07:58
PROVIDERS: ATTEND Internal Medicine Pulmonary Disease
DX: J43.9 Emphysema, unspecified (principal)

== ENCOUNTER → 2023-03-21 | Outpatient (CLI) | payer BC ==
[2023-03-21 13:03] LABS: BASO # 0.1 10^3/uL (0.0-0.2); BASO % 1.3 % (0.0-1.0); EOS # 0.3 10^3/uL (0.0-0.5); EOS % 3.3 % (0.0-3.0); HEMATOCRIT 48.9 % (42.0-52.0); HEMOGLOBIN 16.7 g/dl (13.5-17.5); LYMPH % 30.3 % (24.0-44.0); MEAN CORPUSCULAR HEMOGLOBIN 33.4 pg (27.0-33.0); MEAN CORPUSCULAR HGB CONC 34.2 g/dl (32.0-36.5); MEAN CORPUSCULAR VOLUME 97.8 fl (80.0-96.0); MONO % 10.4 % (2.0-8.0); NEUTROPHILS # 5.3 10^3/uL (1.5-8.5); NEUTROPHILS % 54.4 % (36.0-66.0); PLATELET COUNT, AUTOMATED 230 10^3/uL (150-450); WHITE BLOOD COUNT 9.8 10^3/uL (4.0-10.0)
[2023-03-21 13:21] LABS: PERCENT SATURATION 61.1 % (19.7-50.0)
[2023-03-21 13:23] LABS: FERRITIN 222.2 NG/ML (10.5-307.3)
== END ==
LOC: M LAB 12:11
PROVIDERS: ATTEND Registered Nurse
DX: Z00.00 Encounter for general adult medical examination without abnormal findings (principal); E66.9 Obesity, unspecified; I10 Essential (primary) hypertension

== ENCOUNTER → 2023-08-03 | Outpatient (REF) | LOC: M EMP 08:49 | PROVIDERS: ATTEND Family Medicine | DX: Z11.52 Encounter for screening for COVID-19 (principal) ==

== ENCOUNTER → 2023-09-04 | Outpatient (CLI) | payer BC ==
[2023-09-04 08:42] LABS: BASO # 0.1 10^3/uL (0.0-0.2); BASO % 0.6 % (0.0-1.0); EOS # 0.2 10^3/uL (0.0-0.5); EOS % 1.5 % (0.0-3.0); HEMATOCRIT 54.5 % (42.0-52.0); HEMOGLOBIN 18.4 g/dl (13.5-17.5); LYMPH # 4.4 10^3/uL (1.5-5.0); LYMPH % 27.9 % (24.0-44.0); MEAN CORPUSCULAR HEMOGLOBIN 33.7 pg (27.0-33.0); MEAN CORPUSCULAR HGB CONC 33.8 g/dl (32.0-36.5); MEAN CORPUSCULAR VOLUME 99.8 fl (80.0-96.0); MONO # 1.7 10^3/uL (0.0-0.8); MONO % 10.8 % (2.0-8.0); NEUTROPHILS # 9.2 10^3/uL (1.5-8.5); NEUTROPHILS % 58.8 % (36.0-66.0); PLATELET COUNT, AUTOMATED 272 10^3/uL (150-450); RED BLOOD COUNT 5.46 10^6/uL (4.30-6.10); WHITE BLOOD COUNT 15.7 10^3/uL (4.0-10.0)
[2023-09-04 09:13] LABS: ALBUMIN 3.6 G/DL (3.2-5.2); ALKALINE PHOSPHATASE 83 U/L (46-116); ALT/SGPT 20 U/L (7.0-40); AST/SGOT 12 U/L (<34); BILIRUBIN,TOTAL 0.8 MG/DL (0.3-1.2); BLOOD UREA NITROGEN 16 MG/DL (9-23); CALCIUM LEVEL 9.4 MG/DL (8.3-10.6); CARBON DIOXIDE LEVEL 30 MMOL/L (20-31); CHLORIDE LEVEL 103 MMOL/L (98-107); CREATININE FOR GFR 0.82 MG/DL (0.70-1.30); GLOMERULAR FILTRATION RATE > 60.0 (>49); GLUCOSE, FASTING 112 MG/DL (74-106); SODIUM LEVEL 138 MMOL/L (136-145); TOTAL PROTEIN 6.9 G/DL (5.7-8.2)
== END ==
LOC: M RAD 08:07
PROVIDERS: ATTEND Nurse Practitioner Family
DX: R06.02 Shortness of breath (principal)

== ENCOUNTER → 2023-10-05 | Outpatient (CLI) | payer BC ==
[2023-10-05 10:38] LABS: BASO # 0.1 10^3/uL (0.0-0.2); BASO % 0.9 % (0.0-1.0); EOS # 0.3 10^3/uL (0.0-0.5); EOS % 3.3 % (0.0-3.0); HEMATOCRIT 54.3 % (42.0-52.0); HEMOGLOBIN 17.8 g/dl (13.5-17.5); LYMPH # 2.3 10^3/uL (1.5-5.0); LYMPH % 25.8 % (24.0-44.0); MEAN CORPUSCULAR HEMOGLOBIN 32.7 pg (27.0-33.0); MEAN CORPUSCULAR HGB CONC 32.8 g/dl (32.0-36.5); MEAN CORPUSCULAR VOLUME 99.6 fl (80.0-96.0); MONO # 0.9 10^3/uL (0.0-0.8); MONO % 10.4 % (2.0-8.0); NEUTROPHILS # 5.4 10^3/uL (1.5-8.5); NEUTROPHILS % 59.3 % (36.0-66.0); PLATELET COUNT, AUTOMATED 225 10^3/uL (150-450); RED BLOOD COUNT 5.45 10^6/uL (4.30-6.10); WHITE BLOOD COUNT 9.1 10^3/uL (4.0-10.0)
[2023-10-05 10:56] LABS: ALBUMIN 3.4 G/DL (3.2-5.2); ALKALINE PHOSPHATASE 86 U/L (46-116); ALT/SGPT 20 U/L (7.0-40); AST/SGOT 13 U/L (<34); BILIRUBIN,TOTAL 0.8 MG/DL (0.3-1.2); BLOOD UREA NITROGEN 10 MG/DL (9-23); CALCIUM LEVEL 8.6 MG/DL (8.3-10.6); CARBON DIOXIDE LEVEL 27 MMOL/L (20-31); CHLORIDE LEVEL 108 MMOL/L (98-107); CHOLESTEROL LEVEL 139 MG/DL (<200); CHOLESTEROL RISK RATIO 3.01 (<5); CREATININE FOR GFR 0.73 MG/DL (0.70-1.30); GLOMERULAR FILTRATION RATE > 60.0 (>49); GLUCOSE, FASTING 106 MG/DL (74-106); HDL CHOLESTEROL 46.1 MG/DL (>40); LDL CHOLESTEROL 80.7 MG/DL (<100); NON-HDL-C 92.9 MG/DL; POTASSIUM SERUM 4.5 MMOL/L (3.5-5.1); SODIUM LEVEL 140 MMOL/L (136-145); TOTAL PROTEIN 6.5 G/DL (5.7-8.2); TRIGLYCERIDES LEVEL 61 MG/DL (<150)
[2023-10-05 10:58] LABS: TOTAL 25(OH) VITAMIN D 23.1 NG/ML (20.0-100.0)
[2023-10-05 11:13] LABS: HEMOGLOBIN A1c 5.6 % (4.0-6.0)
== END ==
LOC: M RAD 09:01
PROVIDERS: ATTEND Registered Nurse
DX: J44.9 Chronic obstructive pulmonary disease, unspecified (principal)

== ENCOUNTER → 2023-10-09 | Outpatient (CLI) | payer BC ==
[~2023-10-09] MED LIST changes: +ISOVUE-370 76% 100ML VIAL As Ordered ONE
== END ==
LOC: M RAD 07:46
PROVIDERS: ATTEND Physician Assistant
DX: I71.43 Infrarenal abdominal aortic aneurysm, without rupture (principal)
CPT/HCPCS: 74174; Q9967

== ENCOUNTER → 2024-02-05 | Outpatient (CLI) | payer BC ==
[~2024-02-05] MED LIST changes: -ISOVUE-370 76% 100ML VIAL As Ordered ONE; -ROSU10TA6 PO; +ROSU10TA61 PO
== END ==
LOC: M RAD 09:17
PROVIDERS: ATTEND Registered Nurse
DX: J44.1 Chronic obstructive pulmonary disease with (acute) exacerbation (principal)

== ENCOUNTER 2024-02-12 17:27 | Emergency (ER) | payer OTHER, BC ==
[~2024-02-12] VITALS: Ht 170.2 cm; Wt 104.5 kg
[2024-02-12 17:27] VITALS: BP 160/95; TEMP 98.2; O2SAT 96
== END 2024-02-12 19:58 | disposition left against medical advice (07) ==
LOC: M ED 17:27
DX: Z53.21 Procedure and treatment not carried out due to patient leaving prior to being seen by health care provider (principal)

== ENCOUNTER 2024-02-18 13:51 | Inpatient (IN) | payer BC, OTHER ==
[~2024-02-18] VITALS: Ht 170.2 cm; Wt 118.0 kg
[2024-02-18 14:50] LABS: BASO # 0.1 10^3/uL (0.0-0.2); BASO % 0.8 % (0.0-1.0); EOS # 0.3 10^3/uL (0.0-0.5); EOS % 2.3 % (0.0-3.0); LYMPH # 2.7 10^3/uL (1.5-5.0); LYMPH % 22.8 % (24.0-44.0); MEAN CORPUSCULAR HGB CONC 33.8 g/dl (32.0-36.5); MEAN CORPUSCULAR VOLUME 100.5 fl (80.0-96.0); MONO # 1.2 10^3/uL (0.0-0.8); MONO % 9.9 % (2.0-8.0); NEUTROPHILS # 7.6 10^3/uL (1.5-8.5); NEUTROPHILS % 63.8 % (36.0-66.0); PLATELET COUNT, AUTOMATED 220 10^3/uL (150-450); RED BLOOD COUNT 5.47 10^6/uL (4.30-6.10)
[2024-02-18 14:54] LABS: HEMOGLOBIN 18.6 g/dl (13.5-17.5)
[2024-02-18 14:58] LABS: BLOOD UREA NITROGEN 16 MG/DL (9-23); CALCIUM LEVEL 8.9 MG/DL (8.3-10.6); CARBON DIOXIDE LEVEL 29 MMOL/L (20-31); CHLORIDE LEVEL 103 MMOL/L (98-107); CK-MB VALUE MASS 1.3 NG/ML (<3.6); CREATININE FOR GFR 0.89 MG/DL (0.70-1.30); GLOMERULAR FILTRATION RATE > 60.0 (>49); GLUCOSE, FASTING 113 MG/DL (74-106); POTASSIUM SERUM 4.8 MMOL/L (3.5-5.1); SODIUM LEVEL 138 MMOL/L (136-145)
[2024-02-18 15:02] LABS: FREE T4 1.17 NG/DL (0.89-1.76); THYROID STIMULATING HORMONE 1.419 uIU/ML (0.55-4.78)
[2024-02-18 15:03] LABS: CPK CREATINE PHOSPHOKINASE 63 U/L (46-171); MB/CK RELATIVE INDEX 2.06 (< OR =4)
[2024-02-18 16:03] LABS: MB/CK RELATIVE INDEX 3.7 (< OR =4)
[2024-02-18] MEDS: CARVedilol 12.5 MG TAB PO ONE (17:17)
[2024-02-18] MEDS ORDERED: REPA140I2 SC (17:54)
[2024-02-18] MEDS ORDERED: ALBU8.5H INH (17:54)
[2024-02-18] MEDS ORDERED: BENA25CA4 PO (17:54)
[2024-02-18] MEDS ORDERED: HOME MED LIST COMPLETE! XX SCH (17:55)
[2024-02-18] MEDS: MAG SULF 1GM/100ML (MAG RUN) 1 GM in IV 1 EA IV SCH (18:25)
[2024-02-18 18:37] LABS: FOLATE 14.64 NG/ML (>5.4)
[2024-02-18 18:59] VITALS: BP 140/72; TEMP 97.3; O2SAT 97
[2024-02-18 19:36] VITALS: BP 128/78; O2SAT 93
[2024-02-18] MEDS: LEVALBUTEROL 1.25MG 0.5ML CONCENTRATE NEB NEB SCH (19:50)
[2024-02-18] MEDS: IPRATROPIUM 0.02% SOLN 0.5MG 2.5ML NEB NEB SCH (19:50)
[2024-02-18] MEDS: SYMBICORT 80/4.5MCG INHALER 6GM INH SCH (19:50)
[2024-02-18] MEDS: ATORVASTATIN 20 MG TAB PO SCH (20:00)
[2024-02-18] MEDS: CARVedilol 12.5 MG TAB PO SCH (20:00)
[2024-02-18] MEDS: predniSONE 20 MG TAB PO SCH (20:00)
[2024-02-18] MEDS: AMIODARONE HCL 150 MG in IV 1 EA IV ONE (20:17)
[2024-02-18] MEDS: AMIODARONE HCL 360 MG in IV 1 EA IV SCH (20:28)
[2024-02-18] MEDS: HEPARIN SOD (PORCINE) 5000UNITS/ML 1ML VIAL/SYRINGE SC SCH (22:00)
[2024-02-18 23:00] VITALS: BP 114/73; TEMP 97; O2SAT 93
[2024-02-19] MEDS: AMIODARONE HCL 360 MG in IV 1 EA IV SCH (02:11)
[2024-02-19 03:36] VITALS: BP 154/87; TEMP 97.1; O2SAT 93
[2024-02-19 05:25] LABS: HEMATOCRIT 49.9 % (42.0-52.0); HEMOGLOBIN 16.9 g/dl (13.5-17.5); MEAN CORPUSCULAR HEMOGLOBIN 33.7 pg (27.0-33.0); MEAN CORPUSCULAR HGB CONC 33.9 g/dl (32.0-36.5); MEAN CORPUSCULAR VOLUME 99.6 fl (80.0-96.0); PLATELET COUNT, AUTOMATED 192 10^3/uL (150-450); RED BLOOD COUNT 5.01 10^6/uL (4.30-6.10); WHITE BLOOD COUNT 8.3 10^3/uL (4.0-10.0)
[2024-02-19 05:50] LABS: BLOOD UREA NITROGEN 17 MG/DL (9-23); CALCIUM LEVEL 8.2 MG/DL (8.3-10.6); CARBON DIOXIDE LEVEL 28 MMOL/L (20-31); CHLORIDE LEVEL 103 MMOL/L (98-107); CREATININE FOR GFR 0.77 MG/DL (0.70-1.30); GLOMERULAR FILTRATION RATE > 60.0 (>49); GLUCOSE, FASTING 141 MG/DL (74-106); MAGNESIUM LEVEL 2.2 MG/DL (1.8-2.4); POTASSIUM SERUM 4.6 MMOL/L (3.5-5.1); SODIUM LEVEL 134 MMOL/L (136-145)
[2024-02-19] MEDS ORDERED: LEVALBUTEROL 1.25MG 0.5ML CONCENTRATE NEB INH PRN (07:35)
[2024-02-19 07:43] VITALS: BP 136/87; TEMP 97.2; O2SAT 93
[2024-02-19] MEDS ORDERED: FLUTICASONE HFA 110MCG 12GM INHALER (FLOVENT) INH SCH (08:00)
[2024-02-19] MEDS ORDERED: TIOTROPIUM INHALER/CAPSULE (SPIRIVA) INH SCH (08:00)
[2024-02-19 08:18] LABS: ALBUMIN 3.2 G/DL (3.2-5.2); CHOLESTEROL LEVEL 103 MG/DL (<200); CHOLESTEROL RISK RATIO 1.84 (<5); HDL CHOLESTEROL 55.9 MG/DL (>40); LDL CHOLESTEROL 35.3 MG/DL (<100); NON-HDL-C 47.1 MG/DL; TRIGLYCERIDES LEVEL 59 MG/DL (<150)
[2024-02-19 08:24] LABS: HEMOGLOBIN A1c 5.9 % (4.0-6.0)
[2024-02-19] MEDS: ASPIRIN 81MG CHEW TABLET PO SCH (08:29)
[2024-02-19] MEDS: methylPREDNISolone 125MG 2ML VIAL IV ONE (08:29)
[2024-02-19] MEDS: DOXYCYCLINE HYCLATE 100MG TABLET PO SCH (08:29)
[2024-02-19] MEDS: LEVALBUTEROL 1.25MG 0.5ML CONCENTRATE NEB INH SCH (09:40)
[2024-02-19] MEDS: TIOTROPIUM INHALER/CAPSULE (SPIRIVA) INH SCH (09:41)
[2024-02-19 11:37] VITALS: BP 122/74; TEMP 97.5; O2SAT 92
[2024-02-19] MEDS: methylPREDNISolone 40MG 1ML VIAL IV SCH (13:29)
[2024-02-19 16:00] VITALS: BP 142/75; TEMP 97.6; O2SAT 91
[2024-02-19 19:19] VITALS: BP 130/82; TEMP 97.9; O2SAT 93
[2024-02-19 23:02] VITALS: BP 130/82; TEMP 97.6; O2SAT 91
[2024-02-20] VITALS (7 sets, daily range): BP systolic 120–142; BP diastolic 78–96; TEMP 96.7–97.7; O2SAT 91–98
[2024-02-20 05:35] LABS: ALBUMIN 3.2 G/DL (3.2-5.2); BLOOD UREA NITROGEN 18 MG/DL (9-23); CALCIUM LEVEL 8.9 MG/DL (8.3-10.6); CARBON DIOXIDE LEVEL 26 MMOL/L (20-31); CHLORIDE LEVEL 105 MMOL/L (98-107); CREATININE FOR GFR 0.69 MG/DL (0.70-1.30); GLOMERULAR FILTRATION RATE > 60.0 (>49); GLUCOSE, FASTING 151 MG/DL (74-106); MAGNESIUM LEVEL 1.9 MG/DL (1.8-2.4); POTASSIUM SERUM 4.8 MMOL/L (3.5-5.1); SODIUM LEVEL 137 MMOL/L (136-145)
[2024-02-20] MEDS: AMIODARONE 200 MG TAB (PACERONE) PO ONE (12:04)
[2024-02-20] MEDS: MAG SULF 1GM/100ML (MAG RUN) 1 GM in IV 1 EA IV ONE (12:04)
[2024-02-20 15:26] LABS: IONIZED CALCIUM 4.6 MG/DL (4.5-5.3)
[2024-02-20 15:57] LABS: MAGNESIUM LEVEL 2.1 MG/DL (1.8-2.4); POTASSIUM SERUM 4.5 MMOL/L (3.5-5.1)
[2024-02-20 16:01] LABS: MB/CK RELATIVE INDEX 4.76 (< OR =4)
[2024-02-20] MEDS: CALCIUM GLUCONATE 1,000 MG in D5W MINI-BAG PLUS 100 ML IV ONE (16:55)
[2024-02-20] MEDS: AMIODARONE 200 MG TAB (PACERONE) PO SCH (20:53)
[2024-02-21 03:41] VITALS: BP 138/89; TEMP 97; O2SAT 92
[2024-02-21 07:16] VITALS: BP 133/78; TEMP 97; O2SAT 92
[2024-02-21] MEDS ORDERED: PRED10TA2 PO (07:24)
[2024-02-21] MEDS ORDERED: AMIO200T49 PO (07:24)
[2024-02-21] MEDS ORDERED: DOXY-440 PO (07:32)
[2024-02-21] MEDS ORDERED: CORE25TA PO (07:32)
[2024-02-21] MEDS ORDERED: IPRA0.00 INH (07:35)
[2024-02-21] MEDS ORDERED: VENTAER INH (07:35)
[2024-02-21] MEDS ORDERED: PRED20TA PO (07:35)
[2024-02-21] MEDS ORDERED: AMOX875T2 PO (07:35)
[2024-02-21 08:41] VITALS: BP 133/78
== END 2024-02-21 10:37 | disposition home health service (06) | DRG 201 ==
LOC: M ED 13:51 → M ED INP 16:14 → M PCU 18:50 → OBSVTOIN 02-19 12:50
PROVIDERS: ADMIT Internal Medicine; ATTEND Internal Medicine
DX: I47.20 Ventricular tachycardia, unspecified (principal); J44.1 Chronic obstructive pulmonary disease with (acute) exacerbation; I10 Essential (primary) hypertension; E78.5 Hyperlipidemia, unspecified; F17.200 Nicotine dependence, unspecified, uncomplicated; I25.10 Atherosclerotic heart disease of native coronary artery without angina pectoris; I25.5 Ischemic cardiomyopathy; Z95.810 Presence of automatic (implantable) cardiac defibrillator; E66.9 Obesity, unspecified; Z68.39 Body mass index [BMI] 39.0-39.9, adult; Z79.899 Other long term (current) drug therapy; Z79.82 Long term (current) use of aspirin; I49.3 Ventricular premature depolarization

== ENCOUNTER 2024-04-10 06:46 | Emergency (ER) | payer BC ==
[~2024-04-10] VITALS: Ht 172.7 cm; Wt 105.0 kg
[~2024-04-10 06:46] MED LIST changes: +AMIO200T49 PO; +AMOX875T2 PO; +BENA25CA4 PO; +CORE25TA PO; +DOXY-440 PO; +IPRA0.00 INH; +PRED10TA2 PO; +PRED20TA PO; +REPA140I2 SC; +VENTAER INH
[2024-04-10 07:26] VITALS: TEMP 97.5
[2024-04-10 07:28] LABS: BASO # 0.1 10^3/uL (0.0-0.2); BASO % 0.9 % (0.0-1.0); EOS # 0.4 10^3/uL (0.0-0.5); EOS % 4.2 % (0.0-3.0); HEMATOCRIT 51.6 % (42.0-52.0); HEMOGLOBIN 17.3 g/dl (13.5-17.5); LYMPH # 2.3 10^3/uL (1.5-5.0); LYMPH % 21.7 % (24.0-44.0); MEAN CORPUSCULAR HEMOGLOBIN 33.7 pg (27.0-33.0); MEAN CORPUSCULAR HGB CONC 33.5 g/dl (32.0-36.5); MEAN CORPUSCULAR VOLUME 100.4 fl (80.0-96.0); MONO % 9.6 % (2.0-8.0); NEUTROPHILS # 6.6 10^3/uL (1.5-8.5); NEUTROPHILS % 63.2 % (36.0-66.0); PLATELET COUNT, AUTOMATED 242 10^3/uL (150-450); RED BLOOD COUNT 5.14 10^6/uL (4.30-6.10); WHITE BLOOD COUNT 10.4 10^3/uL (4.0-10.0)
[2024-04-10 07:44] LABS: CPK CREATINE PHOSPHOKINASE 77 U/L (46-171)
[2024-04-10 07:50] LABS: BLOOD UREA NITROGEN 12 MG/DL (9-23); CALCIUM LEVEL 8.9 MG/DL (8.3-10.6); CARBON DIOXIDE LEVEL 30 MMOL/L (20-31); CHLORIDE LEVEL 105 MMOL/L (98-107); CK-MB VALUE MASS 2.2 NG/ML (<3.6); CREATININE FOR GFR 0.95 MG/DL (0.70-1.30); GLOMERULAR FILTRATION RATE > 60.0 (>49); GLUCOSE, FASTING 111 MG/DL (74-106); MB/CK RELATIVE INDEX 2.85 (< OR =4); POTASSIUM SERUM 4.8 MMOL/L (3.5-5.1); SODIUM LEVEL 139 MMOL/L (136-145)
[2024-04-10] MEDS: IPRATROPIUM 0.5MG/ALBUTEROL 2.5MG INH SOL UD 3ML (DUONEB) NEB ONE (08:08)
[2024-04-10] MEDS: dexAMETHasone 20MG/5ML VIAL IV ONE (08:24)
[2024-04-10 08:34] LABS: CK-MB VALUE MASS 1.7 NG/ML (<3.6)
[2024-04-10 08:38] LABS: MB/CK RELATIVE INDEX 2.57 (< OR =4)
[2024-04-10] MEDS ORDERED: AMIO200T49 PO (10:38)
[2024-04-10] MEDS ORDERED: CARV25TA PO (10:38)
[2024-04-10] MEDS ORDERED: VENTAER INH (10:38)
[2024-04-10] MEDS ORDERED: ALBU2.5V10 INH (10:38)
[2024-04-10] MEDS ORDERED: HOME MED LIST COMPLETE! XX SCH (10:40)
[2024-04-10 11:00] VITALS: BP 128/71; O2SAT 94
[2024-04-10] MEDS ORDERED: PRED10TA2 PO (11:07)
== END 2024-04-10 11:18 | disposition home or self-care (01) ==
LOC: M ED 06:46
DX: J44.1 Chronic obstructive pulmonary disease with (acute) exacerbation (principal); R13.10 Dysphagia, unspecified; I49.3 Ventricular premature depolarization; I10 Essential (primary) hypertension; E78.5 Hyperlipidemia, unspecified; Z86.79 Personal history of other diseases of the circulatory system; F17.200 Nicotine dependence, unspecified, uncomplicated; F10.10 Alcohol abuse, uncomplicated; Z79.52 Long term (current) use of systemic steroids; Z79.82 Long term (current) use of aspirin; Z79.02 Long term (current) use of antithrombotics/antiplatelets; Z79.899 Other long term (current) drug therapy
CPT/HCPCS: 71045; 80048; 82550; 82553; 83735; 83880; 84484; 85025; 87486; 87581; 87633; 87798; 93005; 93041; 94640; 94760; 96374; 99285; J1100

== ENCOUNTER → 2024-05-29 | Outpatient (REF) ==
[~2024-05-29] MED LIST changes: +ALBU2.5V10 INH; +CARV25TA PO
== END ==
LOC: M EMP 12:53
PROVIDERS: ATTEND Family Medicine
DX: Z11.52 Encounter for screening for COVID-19 (principal)

== ENCOUNTER → 2024-06-23 | Outpatient (CLI) | payer BC ==
[~2024-06-23] MED LIST changes: +E-Z-GAS II EFFERVESCENT PACKET (SODIUM BICARB./CITRIC ACID/SIMETHICONE) As Ordered ONE; +E-Z-HD 98% w/w 340GM SUSP BTL As Ordered ONE; +E-Z-PAQUE 96% w/w SUSP 176GM BTL As Ordered ONE
== END ==
LOC: M RAD 08:32
PROVIDERS: ATTEND Surgery
DX: R12 Heartburn (principal)

== ENCOUNTER 2024-08-05 05:56 | Emergency (ER) | payer BC ==
[~2024-08-05] VITALS: Ht 170.2 cm; Wt 107.7 kg
[~2024-08-05 05:56] MED LIST changes: -E-Z-GAS II EFFERVESCENT PACKET (SODIUM BICARB./CITRIC ACID/SIMETHICONE) As Ordered ONE; -E-Z-HD 98% w/w 340GM SUSP BTL As Ordered ONE; -E-Z-PAQUE 96% w/w SUSP 176GM BTL As Ordered ONE
[2024-08-05] MEDS: ASPIRIN 325 MG TAB PO ONE (06:11)
[2024-08-05 06:15] VITALS: BP 173/98
[2024-08-05] MEDS: NITROGLYCERIN 0.4MG SUBL TABLET SL PRN (06:15)
[2024-08-05 06:16] VITALS: TEMP 97.7
[2024-08-05 06:32] LABS: BASO # 0.1 10^3/uL (0.0-0.2); BASO % 0.8 % (0.0-1.0); EOS # 0.3 10^3/uL (0.0-0.5); EOS % 3.2 % (0.0-3.0); HEMATOCRIT 54.1 % (42.0-52.0); HEMOGLOBIN 18.2 g/dl (13.5-17.5); LYMPH # 2.7 10^3/uL (1.5-5.0); LYMPH % 26.5 % (24.0-44.0); MEAN CORPUSCULAR HEMOGLOBIN 33.5 pg (27.0-33.0); MEAN CORPUSCULAR HGB CONC 33.6 g/dl (32.0-36.5); MEAN CORPUSCULAR VOLUME 99.4 fl (80.0-96.0); MONO # 1.2 10^3/uL (0.0-0.8); MONO % 11.5 % (2.0-8.0); NEUTROPHILS % 57.6 % (36.0-66.0); PLATELET COUNT, AUTOMATED 258 10^3/uL (150-450); RED BLOOD COUNT 5.44 10^6/uL (4.30-6.10); WHITE BLOOD COUNT 10.3 10^3/uL (4.0-10.0)
[2024-08-05 06:56] LABS: BLOOD UREA NITROGEN 16 MG/DL (9-23); CALCIUM LEVEL 9.4 MG/DL (8.3-10.6); CARBON DIOXIDE LEVEL 34 MMOL/L (20-31); CHLORIDE LEVEL 99 MMOL/L (98-107); CK-MB VALUE MASS 1.5 NG/ML (<3.6); CREATININE FOR GFR 1.15 MG/DL (0.70-1.30); GLOMERULAR FILTRATION RATE > 60.0 (>49); GLUCOSE, FASTING 111 MG/DL (74-106); POTASSIUM SERUM 4.6 MMOL/L (3.5-5.1); SODIUM LEVEL 141 MMOL/L (136-145)
[2024-08-05 06:58] LABS: CPK CREATINE PHOSPHOKINASE 86 U/L (46-171); MB/CK RELATIVE INDEX 1.74 (< OR =4)
[2024-08-05] MEDS: IPRATROPIUM 0.5MG/ALBUTEROL 2.5MG INH SOL UD 3ML (DUONEB) NEB SCH (07:01)
[2024-08-05 08:08] LABS: CK-MB VALUE MASS 1.2 NG/ML (<3.6)
[2024-08-05 08:09] LABS: MB/CK RELATIVE INDEX 1.76 (< OR =4)
[2024-08-05 09:49] LABS: CK-MB VALUE MASS 1.4 NG/ML (<3.6)
[2024-08-05 09:51] LABS: MB/CK RELATIVE INDEX 2.08 (< OR =4)
[2024-08-05 10:00] VITALS: BP 126/72; O2SAT 92
[2024-08-05] MEDS ORDERED: DOXY100C82 PO (10:26)
[2024-08-05] MEDS ORDERED: PRED20TA PO (10:26)
== END 2024-08-05 10:37 | disposition home or self-care (01) ==
LOC: M ED 05:56
DX: R07.9 Chest pain, unspecified (principal); J44.1 Chronic obstructive pulmonary disease with (acute) exacerbation; I49.3 Ventricular premature depolarization; I10 Essential (primary) hypertension; E78.5 Hyperlipidemia, unspecified; F17.200 Nicotine dependence, unspecified, uncomplicated; F10.10 Alcohol abuse, uncomplicated; Z87.442 Personal history of urinary calculi; Z86.79 Personal history of other diseases of the circulatory system; Z95.0 Presence of cardiac pacemaker; Z79.52 Long term (current) use of systemic steroids; Z79.82 Long term (current) use of aspirin; Z79.02 Long term (current) use of antithrombotics/antiplatelets; Z79.899 Other long term (current) drug therapy

== ENCOUNTER → 2024-09-12 | Outpatient (CLI) | payer BC ==
[~2024-09-12] MED LIST changes: +DOXY100C82 PO; +TREL1AER INH
[2024-09-12 12:39] LABS: BASO # 0.1 10^3/uL (0.0-0.2); EOS # 0.3 10^3/uL (0.0-0.5); EOS % 3.4 % (0.0-3.0); LYMPH # 2.5 10^3/uL (1.5-5.0); LYMPH % 24.7 % (24.0-44.0); MEAN CORPUSCULAR HEMOGLOBIN 33.2 pg (27.0-33.0); MEAN CORPUSCULAR HGB CONC 32.7 g/dl (32.0-36.5); MEAN CORPUSCULAR VOLUME 101.6 fl (80.0-96.0); MONO # 1.2 10^3/uL (0.0-0.8); MONO % 11.7 % (2.0-8.0); NEUTROPHILS # 5.9 10^3/uL (1.5-8.5); NEUTROPHILS % 58.7 % (36.0-66.0); PLATELET COUNT, AUTOMATED 229 10^3/uL (150-450); RED BLOOD COUNT 5.12 10^6/uL (4.30-6.10); WHITE BLOOD COUNT 10.1 10^3/uL (4.0-10.0)
[2024-09-12 13:11] LABS: ALBUMIN 3.4 G/DL (3.2-5.2); ALKALINE PHOSPHATASE 88 U/L (40-129); ALT/SGPT 20 U/L (7.0-40); AST/SGOT 18 U/L (<34); BILIRUBIN,TOTAL 0.6 MG/DL (0.3-1.2); BLOOD UREA NITROGEN 19 MG/DL (9-23); CALCIUM LEVEL 9.4 MG/DL (8.3-10.6); CARBON DIOXIDE LEVEL 32 MMOL/L (20-31); CHLORIDE LEVEL 106 MMOL/L (98-107); CREATININE FOR GFR 0.97 MG/DL (0.70-1.30); GLOMERULAR FILTRATION RATE > 60.0 (>49); GLUCOSE, FASTING 111 MG/DL (74-106); POTASSIUM SERUM 4.6 MMOL/L (3.5-5.1); SODIUM LEVEL 142 MMOL/L (136-145); TOTAL PROTEIN 6.8 G/DL (5.7-8.2)
== END ==
LOC: M WUC 10:12
PROVIDERS: ATTEND Registered Nurse
DX: Z01.818 Encounter for other preprocedural examination (principal)

== ENCOUNTER → 2024-09-12 | Outpatient (CLI) | payer BC ==
[2024-09-12 12:43] LABS: BLOOD UREA NITROGEN 18 MG/DL (9-23); CALCIUM LEVEL 9.2 MG/DL (8.3-10.6); CARBON DIOXIDE LEVEL 31 MMOL/L (20-31); CHLORIDE LEVEL 106 MMOL/L (98-107); CHOLESTEROL LEVEL 141 MG/DL (<200); CHOLESTEROL RISK RATIO 2.71 (<5); CREATININE FOR GFR 0.95 MG/DL (0.70-1.30); GLOMERULAR FILTRATION RATE > 60.0 (>49); GLUCOSE, FASTING 115 MG/DL (74-106); LDL CHOLESTEROL 67.4 MG/DL (<100); POTASSIUM SERUM 4.5 MMOL/L (3.5-5.1); SODIUM LEVEL 142 MMOL/L (136-145); TRIGLYCERIDES LEVEL 108 MG/DL (<150)
== END ==
LOC: M WUC 10:10
PROVIDERS: ATTEND Nurse Practitioner Family
DX: I50.22 Chronic systolic (congestive) heart failure (principal); E78.2 Mixed hyperlipidemia

== ENCOUNTER 2024-10-03 06:37 | Day surgery (SDC) | payer BC ==
[~2024-10-03] VITALS: Ht 170.2 cm; Wt 107.9 kg
[2024-10-03] MEDS ORDERED: LIDOCAINE 2% 100MG/5ML SDV (FOR ANES.) As Ordered ONE (09:38)
[2024-10-03] MEDS ORDERED: propofoL 200 MG/20 ML VIAL As Ordered ONE (09:38)
[2024-10-03 10:07] VITALS: TEMP 97.6
[2024-10-03 10:22] VITALS: BP 137/67; O2SAT 94
== END 2024-10-03 10:31 | disposition home or self-care (01) ==
LOC: M OPP 06:37
PROVIDERS: ATTEND Surgery
DX: K44.9 Diaphragmatic hernia without obstruction or gangrene (principal); K31.89 Other diseases of stomach and duodenum; R10.13 Epigastric pain; R10.11 Right upper quadrant pain; R13.13 Dysphagia, pharyngeal phase; I48.91 Unspecified atrial fibrillation; I25.10 Atherosclerotic heart disease of native coronary artery without angina pectoris; Z95.5 Presence of coronary angioplasty implant and graft; Z79.51 Long term (current) use of inhaled steroids; Z79.899 Other long term (current) drug therapy; J44.9 Chronic obstructive pulmonary disease, unspecified; F17.210 Nicotine dependence, cigarettes, uncomplicated; Z95.810 Presence of automatic (implantable) cardiac defibrillator

== ENCOUNTER → 2024-10-28 | Outpatient (CLI) | payer BC | LOC: M RAD 07:37 | PROVIDERS: ATTEND Internal Medicine Pulmonary Disease | DX: J44.9 Chronic obstructive pulmonary disease, unspecified (principal) ==

== ENCOUNTER → 2025-03-05 | Outpatient (REF) | payer BC ==
[~2025-03-05] MED LIST changes: -AMIO200T49 PO; +AMIO200T54 PO; +BENZ-18 PO; +DOXY-442 PO; -DOXY100C82 PO; +EZET10TA21 PO; +FLUT1BLS8 INH; +GLYC5INJ NEB; +GUAI20TA PO; +IPRA0.00 NEB; +METO1TAB7 PO; +SPIR-10 PO
[2025-03-05 14:00] LABS: BASO # 0.1 10^3/uL (0.0-0.2); BASO % 1.2 % (0.0-1.0); EOS # 0.4 10^3/uL (0.0-0.5); EOS % 3.6 % (0.0-3.0); LYMPH # 2.9 10^3/uL (1.5-5.0); LYMPH % 24.8 % (24.0-44.0); MONO # 1.4 10^3/uL (0.0-0.8); MONO % 12.0 % (2.0-8.0); NEUTROPHILS # 6.9 10^3/uL (1.5-8.5); NEUTROPHILS % 58.0 % (36.0-66.0); PLATELET COUNT, AUTOMATED 271 10^3/uL (150-450)
== END ==
LOC: M LABWUC 12:29
PROVIDERS: ATTEND Internal Medicine Pulmonary Disease
DX: J44.9 Chronic obstructive pulmonary disease, unspecified (principal)

== ENCOUNTER 2025-03-08 19:01 | Inpatient (IN) | payer BC ==
[~2025-03-08] VITALS: Ht 172.7 cm; Wt 113.7 kg
[~2025-03-08 19:01] MED LIST changes: -FLUT1BLS8 INH; -METO1TAB7 PO
[2025-03-08 19:35] LABS: VENOUS BASE EXCESS 2.6 (-2.0-2.0); VENOUS HCO3 29.8 MMOL/L (23.0-27.0); VENOUS O2 SATURATION 72.2 % (60.0-80.0); VENOUS PARTIAL PRESSURE CO2 54.5 mmHg (38.0-50.0); VENOUS PARTIAL PRESSURE O2 39.4 mmHg (30.0-50.0); VENOUS PH 7.356 UNITS (7.330-7.430); VENOUS STANDARD HCO3 25.9 MMOL/L; VENOUS TOTAL CO2 31.5 MMOL/L (24.0-28.0)
[2025-03-08 19:41] LABS: BASO # 0.1 10^3/uL (0.0-0.2); BASO % 0.5 % (0.0-1.0); EOS # 0.0 10^3/uL (0.0-0.5); EOS % 0.0 % (0.0-3.0); LYMPH # 1.1 10^3/uL (1.5-5.0); LYMPH % 9.1 % (24.0-44.0); MONO # 1.3 10^3/uL (0.0-0.8); MONO % 10.8 % (2.0-8.0); NEUTROPHILS # 9.6 10^3/uL (1.5-8.5); NEUTROPHILS % 79.1 % (36.0-66.0); PLATELET COUNT, AUTOMATED 302 10^3/uL (150-450)
[2025-03-08] MEDS: IPRATROPIUM 0.5 MG/ALBUTEROL 2.5 MG INH SOL UD 3 ML NEB SCH (19:59)
[2025-03-08 20:03] LABS: CK-MB VALUE MASS 4.8 NG/ML (<3.6)
[2025-03-08 20:05] LABS: ALT/SGPT 24.0 U/L (7.0-40); AST/SGOT 29.0 U/L (<34); CALCIUM LEVEL 9.3 MG/DL (8.3-10.6); CARBON DIOXIDE LEVEL 30.0 MMOL/L (20-31); CHLORIDE LEVEL 101.0 MMOL/L (98-107); CREATININE FOR GFR 1.31 MG/DL (0.70-1.30); GLOMERULAR FILTRATION RATE 61.2 (>49); POTASSIUM SERUM 5.2 MMOL/L (3.5-5.1); SODIUM LEVEL 141.0 MMOL/L (136-145)
[2025-03-08 20:09] LABS: CPK CREATINE PHOSPHOKINASE 159.0 U/L (46-171); MB/CK RELATIVE INDEX 3.01 (< OR =4)
[2025-03-08 21:09] LABS: CK-MB VALUE MASS 4.3 NG/ML (<3.6)
[2025-03-08 21:10] LABS: CPK CREATINE PHOSPHOKINASE 147.0 U/L (46-171); MB/CK RELATIVE INDEX 2.92 (< OR =4)
[2025-03-08] MEDS ORDERED: IPRA0.00 INH (21:25)
[2025-03-08] MEDS ORDERED: METO1TAB7 PO (21:25)
[2025-03-08] MEDS ORDERED: FLUT1BLS8 INH (21:25)
[2025-03-08] MEDS ORDERED: PRED20TA PO (21:25)
[2025-03-08] MEDS ORDERED: HOME MED LIST COMPLETE! XX SCH (21:30)
[2025-03-08] MEDS: AZITHROMYCIN 250 MG TABLET PO ONE (23:19)
[2025-03-08] MEDS ORDERED: MAALOX 30 ML SUSP *UDC PO PRN (23:20)
[2025-03-08] MEDS ORDERED: ACETAMINOPHEN 325 MG TAB PO PRN (23:20)
[2025-03-08] MEDS: cefTRIAXone SOD 1 GM in DEXTROSE 5% (D5W) ADV/MINI-BAG 50 ML IV ONE (23:20)
[2025-03-08] MEDS ORDERED: guaiFENesin SYRUP 200 MG/10 ML UDC PO PRN (23:20)
[2025-03-08] MEDS ORDERED: MOM 30 ML SUSPENSION UDC PO PRN (23:20)
[2025-03-09] VITALS (25 sets, daily range): BP systolic 111–145; BP diastolic 58–83; TEMP 96.8–97.5; O2SAT 86–93
[2025-03-09] MEDS: ATORVASTATIN 20 MG TAB PO SCH (00:55)
[2025-03-09] MEDS: METOPROLOL SUCC. 50 MG *XL* TAB PO SCH (00:56)
[2025-03-09] MEDS: LEVALBUTEROL 1.25 MG 0.5ML CONCENTRATE NEB NEB SCH (02:47)
[2025-03-09 05:43] LABS: PLATELET COUNT, AUTOMATED 273 10^3/uL (150-450)
[2025-03-09 06:05] LABS: CALCIUM LEVEL 9.2 MG/DL (8.3-10.6); CARBON DIOXIDE LEVEL 27.0 MMOL/L (20-31); CHLORIDE LEVEL 101.0 MMOL/L (98-107); CREATININE FOR GFR 1.01 MG/DL (0.70-1.30); GLOMERULAR FILTRATION RATE 83.6 (>49); MAGNESIUM LEVEL 2.2 MG/DL (1.8-2.4); POTASSIUM SERUM 5.2 MMOL/L (3.5-5.1); SODIUM LEVEL 143.0 MMOL/L (136-145)
[2025-03-09] MEDS: TIOTROPIUM BROM 2.5MCG/ACTUATION 4GM INH INH SCH (07:42)
[2025-03-09] MEDS: ADVAIR HFA 230/21 MCG INHALER INH SCH (07:42)
[2025-03-09] MEDS: SODIUM CHLORIDE HYPERTONIC 3% 4ML NEB SOL INH SCH (07:42)
[2025-03-09] MEDS ORDERED: ISOVUE-370 76% 100 ML VIAL As Ordered ONE (07:47)
[2025-03-09] MEDS: ASPIRIN 81 MG ENTERIC TABLET PO SCH (08:26)
[2025-03-09] MEDS: AMIODARONE 200 MG TAB PO SCH (08:26)
[2025-03-09] MEDS: PANTOPRAZOLE 40MG VIAL IV SCH (08:26)
[2025-03-09] MEDS: SPIRONOLACTONE 25 MG TAB PO SCH (08:26)
[2025-03-09] MEDS: FUROSEMIDE 40 MG TAB PO SCH (08:27)
[2025-03-09] MEDS: DOCUSATE SODIUM 100 MG CAPSULE PO SCH (08:27)
[2025-03-09] MEDS: NICOTINE 21 MG/24 HR 1 EA TRANSDERMAL TD SCH (09:32)
[2025-03-09] MEDS: RIVAROXABAN 10MG TAB PO SCH (17:30)
[2025-03-09] MEDS: IPRATROPIUM 0.5 MG/ALBUTEROL 2.5 MG INH SOL UD 3 ML NEB SCH (20:23)
[2025-03-09] MEDS: AZITHROMYCIN INJ 500 MG, VIAL MATE ADAPTER 1 EACH in NS 250 ML IV SCH (21:08)
[2025-03-09] MEDS: cefTRIAXone SOD 1 GM in DEXTROSE 5% (D5W) ADV/MINI-BAG 50 ML IV SCH (22:08)
[2025-03-10] VITALS (26 sets, daily range): BP systolic 105–131; BP diastolic 55–77; TEMP 96.8–97.8; O2SAT 86–97
[2025-03-10 05:31] LABS: PLATELET COUNT, AUTOMATED 266 10^3/uL (150-450)
[2025-03-10 05:44] LABS: CALCIUM LEVEL 8.7 MG/DL (8.3-10.6); CARBON DIOXIDE LEVEL 30 MMOL/L (20-31); CHLORIDE LEVEL 103 MMOL/L (98-107); CREATININE FOR GFR 0.87 MG/DL (0.70-1.30); GLOMERULAR FILTRATION RATE > 90.0 (>49); PHOSPHORUS LEVEL 3.6 MG/DL (2.4-5.1); POTASSIUM SERUM 4.7 MMOL/L (3.5-5.1); SODIUM LEVEL 143 MMOL/L (136-145)
[2025-03-10 07:31] LABS: MAGNESIUM LEVEL 2.0 MG/DL (1.8-2.4)
[2025-03-11] VITALS (12 sets, daily range): BP systolic 128–147; BP diastolic 58–81; TEMP 96.9–98; O2SAT 87–97
[2025-03-11 06:07] LABS: PLATELET COUNT, AUTOMATED 276 10^3/uL (150-450)
[2025-03-11 06:55] LABS: CALCIUM LEVEL 8.4 MG/DL (8.3-10.6); CARBON DIOXIDE LEVEL 34 MMOL/L (20-31); CHLORIDE LEVEL 103 MMOL/L (98-107); CREATININE FOR GFR 0.82 MG/DL (0.70-1.30); GLOMERULAR FILTRATION RATE > 90.0 (>49); PHOSPHORUS LEVEL 3.6 MG/DL (2.4-5.1); POTASSIUM SERUM 4.3 MMOL/L (3.5-5.1); SODIUM LEVEL 144 MMOL/L (136-145)
[2025-03-11 09:19] LABS: MAGNESIUM LEVEL 2.1 MG/DL (1.8-2.4)
[2025-03-11] MEDS: FUROSEMIDE 40 MG/4 ML VIAL IV ONE (11:52)
[2025-03-11 12:22] LABS: VITAMIN B12 LEVEL 462 PG/ML (211-911)
[2025-03-11] MEDS: AZITHROMYCIN 250 MG TABLET PO SCH (21:03)
[2025-03-12] VITALS (8 sets, daily range): BP systolic 124–143; BP diastolic 72–91; TEMP 97–97.9; O2SAT 91–94
[2025-03-12 05:20] LABS: PLATELET COUNT, AUTOMATED 255 10^3/uL (150-450)
[2025-03-12 05:42] LABS: CALCIUM LEVEL 8.5 MG/DL (8.3-10.6); CARBON DIOXIDE LEVEL 35 MMOL/L (20-31); CHLORIDE LEVEL 101 MMOL/L (98-107); CREATININE FOR GFR 0.80 MG/DL (0.70-1.30); GLOMERULAR FILTRATION RATE > 90.0 (>49); PHOSPHORUS LEVEL 3.6 MG/DL (2.4-5.1); POTASSIUM SERUM 4.2 MMOL/L (3.5-5.1); SODIUM LEVEL 145 MMOL/L (136-145)
[2025-03-12] MEDS: guaiFENesin SYRUP 200 MG/10 ML UDC PO PRN (10:55)
[2025-03-12] MEDS: BENZONATATE 100 MG CAPSULE PO SCH (14:32)
[2025-03-12] MEDS: guaiFENesin SYRUP 200 MG/10 ML UDC PO SCH (18:09)
[2025-03-12] MEDS: BUDESONIDE 180 MCG INHALER INH SCH (19:21)
[2025-03-12] MEDS: BUDESONIDE 0.5 MG/2 ML INHALATION SUSPENSION NEB SCH (21:55)
[2025-03-13 03:47] VITALS: BP 147/88; TEMP 97; O2SAT 89
[2025-03-13 05:35] LABS: PLATELET COUNT, AUTOMATED 261 10^3/uL (150-450)
[2025-03-13 06:01] LABS: CALCIUM LEVEL 8.6 MG/DL (8.3-10.6); CARBON DIOXIDE LEVEL 34 MMOL/L (20-31); CHLORIDE LEVEL 101 MMOL/L (98-107); CREATININE FOR GFR 0.81 MG/DL (0.70-1.30); GLOMERULAR FILTRATION RATE > 90.0 (>49); PHOSPHORUS LEVEL 3.4 MG/DL (2.4-5.1); POTASSIUM SERUM 4.4 MMOL/L (3.5-5.1); SODIUM LEVEL 145 MMOL/L (136-145)
[2025-03-13] MEDS: ACETYLCYSTEINE 20% 4 ML VIAL (200 MG/ML) INH ONE (11:30)
[2025-03-13] MEDS: IPRATROPIUM 0.5 MG/ALBUTEROL 2.5 MG INH SOL UD 3 ML NEB PRN (11:30)
[2025-03-13] MEDS: CEFDINIR 300 MG CAP PO SCH (11:30)
[2025-03-13 12:00] VITALS: BP 153/95; TEMP 98.2; O2SAT 86
[2025-03-13 19:28] VITALS: BP 141/85; TEMP 97.8; O2SAT 92
[2025-03-13] MEDS: RAMELTEON 8 MG TAB PO SCH (23:16)
[2025-03-14 03:39] VITALS: BP 151/70; TEMP 97; O2SAT 91
[2025-03-14 05:36] LABS: PLATELET COUNT, AUTOMATED 245 10^3/uL (150-450)
[2025-03-14 06:00] LABS: CALCIUM LEVEL 8.5 MG/DL (8.3-10.6); CARBON DIOXIDE LEVEL 33 MMOL/L (20-31); CHLORIDE LEVEL 102 MMOL/L (98-107); CREATININE FOR GFR 0.80 MG/DL (0.70-1.30); GLOMERULAR FILTRATION RATE > 90.0 (>49); PHOSPHORUS LEVEL 4.2 MG/DL (2.4-5.1); POTASSIUM SERUM 4.5 MMOL/L (3.5-5.1); SODIUM LEVEL 145 MMOL/L (136-145)
[2025-03-14 07:35] VITALS: BP 184/74; TEMP 97.6; O2SAT 93
[2025-03-14] MEDS: ACETYLCYSTEINE 20% 4 ML VIAL (200 MG/ML) INH SCH (08:05)
[2025-03-14] MEDS: predniSONE 20 MG TAB PO SCH (11:20)
[2025-03-14] MEDS: amLODIPine 5 MG TAB PO SCH (11:21)
[2025-03-14 15:39] VITALS: BP 148/90; TEMP 97.4; O2SAT 90
[2025-03-14 18:17] VITALS: BP 156/72; TEMP 97.3; O2SAT 90
[2025-03-14 19:30] VITALS: BP 150/85; TEMP 98.4; O2SAT 90
[2025-03-14] MEDS: ALPRAZolam 0.5 MG TAB PO SCH (20:59)
[2025-03-14] MEDS: guaiFENesin ER TABLET 600 MG TAB PO SCH (21:00)
[2025-03-15 05:41] VITALS: BP 135/80; TEMP 98; O2SAT 93
[2025-03-15 06:53] LABS: PLATELET COUNT, AUTOMATED 244 10^3/uL (150-450)
[2025-03-15 07:19] LABS: CALCIUM LEVEL 8.4 MG/DL (8.3-10.6); CARBON DIOXIDE LEVEL 35 MMOL/L (20-31); CHLORIDE LEVEL 103 MMOL/L (98-107); CREATININE FOR GFR 0.84 MG/DL (0.70-1.30); GLOMERULAR FILTRATION RATE > 90.0 (>49); PHOSPHORUS LEVEL 4.3 MG/DL (2.4-5.1); POTASSIUM SERUM 4.6 MMOL/L (3.5-5.1); SODIUM LEVEL 144 MMOL/L (136-145)
[2025-03-15] MEDS: CLOTRIMAZOLE 10 MG TROCHE PO SCH (10:44)
[2025-03-15 12:00] VITALS: BP 127/88; TEMP 97.7; O2SAT 92
[2025-03-15 20:34] VITALS: BP 132/94; TEMP 97.7; O2SAT 92
[2025-03-15 20:57] VITALS: O2SAT 88
[2025-03-16 05:58] VITALS: BP 104/66; TEMP 98.5; O2SAT 94
[2025-03-16 07:05] LABS: PLATELET COUNT, AUTOMATED 204 10^3/uL (150-450)
[2025-03-16 08:01] LABS: CALCIUM LEVEL 8.2 MG/DL (8.3-10.6); CARBON DIOXIDE LEVEL 37 MMOL/L (20-31); CHLORIDE LEVEL 103 MMOL/L (98-107); CREATININE FOR GFR 0.83 MG/DL (0.70-1.30); GLOMERULAR FILTRATION RATE > 90.0 (>49); PHOSPHORUS LEVEL 3.4 MG/DL (2.4-5.1); POTASSIUM SERUM 4.3 MMOL/L (3.5-5.1); SODIUM LEVEL 144 MMOL/L (136-145)
[2025-03-16 08:32] VITALS: BP 119/81; TEMP 98.7; O2SAT 91
[2025-03-16 08:36] VITALS: O2SAT 92
[2025-03-16 09:11] VITALS: BP 119/81
[2025-03-16] MEDS ORDERED: MUCI1TAB18 PO (10:57)
[2025-03-16] MEDS ORDERED: PRED10TA2 PO (10:57)
[2025-03-16] MEDS ORDERED: CLOT10TR11 PO (10:57)
== END 2025-03-16 13:10 | disposition home or self-care (01) | DRG 140 ==
LOC: M ED 19:01 → M ED INP 23:18 → M PCU 03-09 00:39 → M MS4PR 03-14 16:17
PROVIDERS: ADMIT Student in an Organized Health Care Education/Training Program; ATTEND Internal Medicine
DX: J44.1 Chronic obstructive pulmonary disease with (acute) exacerbation (principal); J15.69 Pneumonia due to other Gram-negative bacteria; N17.9 Acute kidney failure, unspecified; I50.22 Chronic systolic (congestive) heart failure; B37.0 Candidal stomatitis; J96.01 Acute respiratory failure with hypoxia; E87.5 Hyperkalemia; J45.909 Unspecified asthma, uncomplicated; I11.0 Hypertensive heart disease with heart failure; I25.10 Atherosclerotic heart disease of native coronary artery without angina pectoris; J20.6 Acute bronchitis due to rhinovirus; D72.829 Elevated white blood cell count, unspecified; F17.210 Nicotine dependence, cigarettes, uncomplicated; Z79.899 Other long term (current) drug therapy; Z79.82 Long term (current) use of aspirin; Z79.52 Long term (current) use of systemic steroids; E87.6 Hypokalemia; Z95.2 Presence of prosthetic heart valve

== ENCOUNTER → 2025-04-02 | Outpatient (REF) | payer BC ==
[~2025-04-02] MED LIST changes: +CLOT10TR11 PO; +FLUT1BLS8 INH; +METO1TAB7 PO; +MUCI1TAB18 PO
== END ==
LOC: M LAB REF 14:36
PROVIDERS: ATTEND Internal Medicine Pulmonary Disease
DX: J44.9 Chronic obstructive pulmonary disease, unspecified (principal); R05.9 Cough, unspecified

== ENCOUNTER → 2025-04-03 | Outpatient (CLI) | payer BC | LOC: M RAD 09:32 | PROVIDERS: ATTEND Internal Medicine Pulmonary Disease | DX: Z12.2 Encounter for screening for malignant neoplasm of respiratory organs (principal); Z87.891 Personal history of nicotine dependence ==

== ENCOUNTER → 2025-05-02 | Outpatient (CLI) | payer BC ==
[2025-05-02 10:50] LABS: ALT/SGPT 19.0 U/L (7.0-40); AST/SGOT 22.0 U/L (<34); CALCIUM LEVEL 9.5 MG/DL (8.3-10.6); CARBON DIOXIDE LEVEL 31.0 MMOL/L (20-31); CHLORIDE LEVEL 100.0 MMOL/L (98-107); CREATININE FOR GFR 1.21 MG/DL (0.70-1.30); GLOMERULAR FILTRATION RATE 67.3 (>49); MAGNESIUM LEVEL 2.1 MG/DL (1.8-2.4); POTASSIUM SERUM 4.5 MMOL/L (3.5-5.1); SODIUM LEVEL 140.0 MMOL/L (136-145)
[2025-05-05 10:27] LABS: NT PRO BNP SO 195 pg/mL (<125)
== END ==
LOC: M LAB 09:30
PROVIDERS: ATTEND Internal Medicine Pulmonary Disease
DX: J47.9 Bronchiectasis, uncomplicated (principal)

== ENCOUNTER → 2025-05-04 | Outpatient (CLI) | payer BC | LOC: M WUC 13:54 | PROVIDERS: ATTEND Nurse Practitioner Family | DX: I50.22 Chronic systolic (congestive) heart failure (principal) ==

== ENCOUNTER → 2025-05-18 | Outpatient (CLI) | payer BC ==
[~2025-05-18] MED LIST changes: -EZET10TA21 PO; +EZET10TA57 PO
== END ==
LOC: M RAD 10:38
PROVIDERS: ATTEND Internal Medicine Pulmonary Disease
DX: J98.11 Atelectasis (principal); J84.10 Pulmonary fibrosis, unspecified; I25.10 Atherosclerotic heart disease of native coronary artery without angina pectoris

== ENCOUNTER → 2025-06-01 | Outpatient (CLI) | payer BC ==
[2025-06-01 13:06] LABS: BASO # 0.1 10^3/uL (0.0-0.2); BASO % 0.7 % (0.0-1.0); EOS # 0.3 10^3/uL (0.0-0.5); EOS % 1.8 % (0.0-3.0); LYMPH # 3.4 10^3/uL (1.5-5.0); LYMPH % 20.1 % (24.0-44.0); MONO # 1.8 10^3/uL (0.0-0.8); MONO % 10.7 % (2.0-8.0); NEUTROPHILS # 11.1 10^3/uL (1.5-8.5); NEUTROPHILS % 65.9 % (36.0-66.0); PLATELET COUNT, AUTOMATED 220 10^3/uL (150-450)
[2025-06-01 13:43] LABS: ESTIMATED AVERAGE GLUCOSE 128.0 MG/DL (60-110)
[2025-06-01 13:49] LABS: ALT/SGPT 24.0 U/L (7.0-40); AST/SGOT 24.0 U/L (<34); CALCIUM LEVEL 9.0 MG/DL (8.3-10.6); CARBON DIOXIDE LEVEL 30.0 MMOL/L (20-31); CHLORIDE LEVEL 99.0 MMOL/L (98-107); CREATININE FOR GFR 1.33 MG/DL (0.70-1.30); GLOMERULAR FILTRATION RATE 60.1 (>49); POTASSIUM SERUM 4.1 MMOL/L (3.5-5.1); SODIUM LEVEL 141.0 MMOL/L (136-145)
== END ==
LOC: M WUC 10:46
PROVIDERS: ATTEND Registered Nurse
DX: R39.12 Poor urinary stream (principal); I10 Essential (primary) hypertension

== ENCOUNTER → 2025-06-13 | Outpatient (CLI) | payer BC | LOC: M RAD 10:23 | PROVIDERS: ATTEND Physician Assistant | DX: J47.9 Bronchiectasis, uncomplicated (principal) ==

== ENCOUNTER → 2025-06-23 | Outpatient (CLI) | payer BC ==
[~2025-06-23] MED LIST changes: -ROSU10TA61 PO; +ROSU10TA90 PO
== END ==
LOC: M WUC 14:07
PROVIDERS: ATTEND Internal Medicine Pulmonary Disease
DX: J47.9 Bronchiectasis, uncomplicated (principal)

== ENCOUNTER 2025-07-14 12:24 | Observation (INO) | payer BC ==
[~2025-07-14] VITALS: Ht 165.1 cm; Wt 122.2 kg
[2025-07-14 13:03] LABS: BASO # 0.1 10^3/uL (0.0-0.2); BASO % 0.7 % (0.0-1.0); EOS # 0.6 10^3/uL (0.0-0.5); EOS % 4.2 % (0.0-3.0); LYMPH # 2.0 10^3/uL (1.5-5.0); LYMPH % 15.1 % (24.0-44.0); MONO # 1.5 10^3/uL (0.0-0.8); MONO % 11.3 % (2.0-8.0); NEUTROPHILS # 8.9 10^3/uL (1.5-8.5); NEUTROPHILS % 68.2 % (36.0-66.0); PLATELET COUNT, AUTOMATED 244 10^3/uL (150-450)
[2025-07-14 13:30] LABS: INR 0.92
[2025-07-14 13:34] LABS: ALT/SGPT 27.0 U/L (7.0-40); AST/SGOT 35.0 U/L (<34); CALCIUM LEVEL 8.8 MG/DL (8.3-10.6); CARBON DIOXIDE LEVEL 31.0 MMOL/L (20-31); CHLORIDE LEVEL 100.0 MMOL/L (98-107); CK-MB VALUE MASS 2.6 NG/ML (<3.6); CREATININE FOR GFR 1.48 MG/DL (0.70-1.30); GLOMERULAR FILTRATION RATE 52.8 (>49); POTASSIUM SERUM 4.2 MMOL/L (3.5-5.1); SODIUM LEVEL 140.0 MMOL/L (136-145)
[2025-07-14 13:39] LABS: CPK CREATINE PHOSPHOKINASE 128.0 U/L (46-171); MB/CK RELATIVE INDEX 2.03 (< OR =4)
[2025-07-14] MEDS ORDERED: ISOVUE-370 76% 100 ML VIAL As Ordered ONE (14:05)
[2025-07-14 14:36] LABS: CK-MB VALUE MASS 2.5 NG/ML (<3.6)
[2025-07-14 14:38] LABS: CPK CREATINE PHOSPHOKINASE 114.0 U/L (46-171); MB/CK RELATIVE INDEX 2.19 (< OR =4)
[2025-07-14] MEDS: IPRATROPIUM 0.5 MG/ALBUTEROL 2.5 MG INH SOL UD 3 ML NEB ONE (16:12)
[2025-07-14] MEDS: ALBUTEROL SULFATE 2.5 MG/0.5 ML INH CONCENTRATE NEB SOLN INH ONE (16:12)
[2025-07-14] MEDS ORDERED: MOM 30 ML SUSPENSION UDC PO PRN (18:00)
[2025-07-14] MEDS ORDERED: [UNRECOGNIZED DRUG - CODE] PO (18:00)
[2025-07-14] MEDS ORDERED: MAALOX 30 ML SUSP *UDC PO PRN (18:00)
[2025-07-14] MEDS ORDERED: ACETAMINOPHEN 325 MG TAB PO PRN (18:00)
[2025-07-14] MEDS ORDERED: PANT40TA29 PO (18:01)
[2025-07-14] MEDS ORDERED: BENZ-18 PO (18:01)
[2025-07-14] MEDS ORDERED: EZET10TA57 PO (18:01)
[2025-07-14] MEDS ORDERED: HOME MED LIST COMPLETE! XX SCH (18:05)
[2025-07-14] MEDS: ACETYLCYSTEINE 20% 4 ML VIAL (200 MG/ML) INH SCH (19:08)
[2025-07-14] MEDS: SYMBICORT 160/4.5MCG INHALER 6GM INH SCH (19:08)
[2025-07-14] MEDS: ALBUTEROL SULFATE 2.5 MG/0.5 ML INH CONCENTRATE NEB SOLN NEB SCH (19:08)
[2025-07-14] MEDS: DEXTROMETHORPHAN 60 MG/10 ML SUSP 90 ML BTL PO SCH (20:41)
[2025-07-14] MEDS: HEPARIN SOD 5000 UNITS/ML 1 ML VIAL/SYRINGE SQ SCH (20:41)
[2025-07-14] MEDS: ATORVASTATIN 20 MG TAB PO SCH (20:41)
[2025-07-14] MEDS: guaiFENesin ER TABLET 600 MG TAB PO SCH (20:42)
[2025-07-14] MEDS: METOPROLOL SUCC. 50 MG *XL* TAB PO SCH (20:42)
[2025-07-14] MEDS: PANTOPRAZOLE 40MG TAB PO SCH (20:42)
[2025-07-14] MEDS: EZETIMIBE 10 MG TABLET PO SCH (20:42)
[2025-07-14 21:30] VITALS: BP 137/79; TEMP 98.2; O2SAT 92
[2025-07-15 04:00] VITALS: BP 141/85; TEMP 98.3; O2SAT 91
[2025-07-15 06:19] LABS: CALCIUM LEVEL 8.9 MG/DL (8.3-10.6); CARBON DIOXIDE LEVEL 32.0 MMOL/L (20-31); CHLORIDE LEVEL 99.0 MMOL/L (98-107); CREATININE FOR GFR 1.23 MG/DL (0.70-1.30); GLOMERULAR FILTRATION RATE 66.0 (>49); MAGNESIUM LEVEL 2.3 MG/DL (1.8-2.4); POTASSIUM SERUM 4.9 MMOL/L (3.5-5.1); SODIUM LEVEL 138.0 MMOL/L (136-145)
[2025-07-15] MEDS: SPIRONOLACTONE 25 MG TAB PO SCH (08:38)
[2025-07-15] MEDS: ASPIRIN 81 MG ENTERIC TABLET PO SCH (08:38)
[2025-07-15] MEDS: AMIODARONE 200 MG TAB PO SCH (08:38)
[2025-07-15] MEDS ORDERED: ENOXAPARIN 40 MG/0.4 ML SYRINGE (J1650 PER 10MG) SC SCH (09:00)
[2025-07-15 12:01] VITALS: BP 146/67; TEMP 97.3; O2SAT 94; O2SAT 97
[2025-07-15 15:50] VITALS: O2SAT 96
[2025-07-15] MEDS: IPRATROPIUM 0.5 MG/ALBUTEROL 2.5 MG INH SOL UD 3 ML INH PRN (15:56)
[2025-07-15 20:15] VITALS: BP 117/68; TEMP 98.6; O2SAT 94
[2025-07-15 20:20] VITALS: BP 128/77; TEMP 97.8; O2SAT 95
[2025-07-15] MEDS: RAMELTEON 8 MG TAB PO PRN (23:22)
[2025-07-16 04:00] VITALS: BP 167/76; TEMP 97.6; O2SAT 94
[2025-07-16 08:47] VITALS: BP 124/69
[2025-07-16 12:01] VITALS: BP 122/59; TEMP 97.5; O2SAT 96
[2025-07-16] MEDS ORDERED: MUCI600T31 PO (12:58)
[2025-07-16] MEDS ORDERED: FURO40TA2 PO (12:58)
[2025-07-16] MEDS ORDERED: DELS30LI8 PO (12:58)
[2025-07-16] MEDS ORDERED: SYMB16INH INH (13:07)
== END 2025-07-16 13:39 | disposition home or self-care (01) ==
LOC: M ED 12:24 → M ED INP 17:58 → M MS4PR 21:25
PROVIDERS: ADMIT Student in an Organized Health Care Education/Training Program; ATTEND Student in an Organized Health Care Education/Training Program
DX: R55 Syncope and collapse (principal); R05.3 Chronic cough; N17.9 Acute kidney failure, unspecified; I89.0 Lymphedema, not elsewhere classified; J44.9 Chronic obstructive pulmonary disease, unspecified; J96.11 Chronic respiratory failure with hypoxia; I50.32 Chronic diastolic (congestive) heart failure; I25.10 Atherosclerotic heart disease of native coronary artery without angina pectoris; Z98.61 Coronary angioplasty status; Z95.810 Presence of automatic (implantable) cardiac defibrillator; I11.0 Hypertensive heart disease with heart failure; E78.5 Hyperlipidemia, unspecified; K21.9 Gastro-esophageal reflux disease without esophagitis; I71.40 Abdominal aortic aneurysm, without rupture, unspecified; Z79.82 Long term (current) use of aspirin; Z79.899 Other long term (current) drug therapy
CPT/HCPCS: 36415; 70450; 71045; 71275; 72125; 74177; 80047; 80048; 80076; 82550; 82553; 83690; 83735; 83880; 84145; 84443; 84484; 85025; 85610; 85730; 87486; 87581; 87633; 87798; 93005; 93041; 94640; 94760; 96374; 99285; J2919; Q9967